=== PATIENT | male | born 1985 | race African-American/Black ===

== ENCOUNTER 2022-12-27 02:43 | Emergency (ER) | payer OTHER, MEDICAID, SELFPAY ==
[2022-12-27] VITALS (18 sets, daily range): BP systolic 133–170; BP diastolic 90–115; PULSE 94–125; RESP 17–44; TEMP 36.6; O2SAT 93–100; BMI 50.2
--- NOTE | 2022-12-27 03:30 | DI.RAD.S_ITS ---
PROCEDURE: XR CHEST 1V INDICATIONS: chest pain TECHNIQUE: One view of the chest was acquired. COMPARISON: None. FINDINGS: Surgical changes and devices: None. Lungs and pleura: Right upper lobe pulmonary infiltrate. Heart size is enlarged, there is underlying moderate vascular congestion. No pleural effusions. Mediastinum: Mediastinal contours appear normal. Heart size is normal. Bones and chest wall: No suspicious bony lesions. Overlying soft tissues appear unremarkable. IMPRESSION: Cardiomegaly, moderate vascular congestion and right upper lobe pulmonary infiltrate consistent with pulmonary edema and/or infection Note: Final report is concordant with preliminary interpretation by [facility] Approved by: Maco Evans M.D. on 12/27/2022 at 8:16
[2022-12-27 03:38] LABS: INR 1.4 (0.9-1.3); Prothrombin Time 15.6 SECONDS (10.1-12.7)
[2022-12-27 03:40] LABS: Add Manual Diff / Slide Review NO; Basophils Absolute Auto 100 /uL (0-100); Basophils Percent Auto 0.9 % (0-2); Eosinophils Absolute Auto 0 /uL (0-450); Eosinophils Percent Auto 0.7 % (2-4); Hematocrit 40.4 % (41-53); Hemoglobin 12.6 g/dL (13.5-17.5); Lymphocytes Absolute Auto 2200 /uL (1100-4500); Lymphocytes Percent Auto 33.8 % (25-40); Mean Corpuscular HGB Conc 31.1 % (30-36); Mean Corpuscular Hemoglobin 20.7 PG (26-34); Mean Corpuscular Volume 66.6 fL (80-100); Monocytes Absolute Auto 700 /uL (0-900); Neutrophils Absolute Auto 3500 /uL (1500-7000); Neutrophils Percent Auto 53.6 % (50-75); PTT Partial Thromboplastin Tim 26 SECONDS (26-36); Platelet Count 240 X10^3/uL (150-400); Red Blood Cell Count 6.07 X10^6/uL (4.5-5.9); Red Cell Distribution Width 20.8 % (11.6-14.8); White Blood Cell Count 6.5 X10^3/uL (4.5-11.0)
[2022-12-27 03:41] LABS: Alanine Aminotransferase 53 IU/L (<50); Albumin 3.2 g/dL (3.5-5.0); Albumin Globulin Ratio 1.1 (1.0-2.8); Alkaline Phosphatase 62 U/L (38-126); Aspartate Aminotransferase 34 IU/L (17-59); BUN Creatinine Ratio 14.1 (6-22); Bilirubin Total 0.6 mg/dL (0.2-1.3); Blood Urea Nitrogen 18 mg/dL (9-20); Calcium 8.5 mg/dL (8.4-10.2); Carbon Dioxide 27 mmol/L (22-32); Chloride 103 mmol/L (98-107); Creatine Kinase 138 U/L (55-170); Estimated Glomerular Filt Rate > 60 mL/min (>60); Globulin 2.9 g/dL (1.7-4.1); Glucose 102 mg/dL (70-100); HEMOLYSIS < 15 (0-50); Lipase 274 U/L (23-300); Magnesium 1.8 mg/dL (1.6-2.3); Potassium 4.2 mmol/L (3.4-5.1); Sodium 138 mmol/L (137-145); Total Protein 6.1 g/dL (6.3-8.2)
[2022-12-27 03:54] LABS: COVID19 -Nasal RAPID Negative (Negative)
[2022-12-27 03:56] LABS: CKMB % Relative Index 0.8 % (1.5-5.0); Creatine Kinase MB 1.06 ng/mL (<2.37)
[2022-12-27 04:01] LABS: Hypochromasia 1+
[2022-12-27 04:02] LABS: Anisocytosis 2+; Microcytosis 2+; Target Cells 2+
--- NOTE | 2022-12-27 04:09 | ED.CHESTPAIN ---
HPI - Chest Pain <Bisi Shine MD - Last Filed: 12/28/22 00:27> General Chief Complaint: Chest Pain Stated Complaint: chest pain, sob, coughing up blood Time Seen by Provider: 12/27/22 03:30 Source: patient Mode of arrival: Ambulatory Limitations: no limitations History of Present Illness HPI narrative: 37-year-old gentleman with a history of hypertension, seizure disorder, hypertension who has not taking any medications or had any interactions with the healthcare system for at least 2 years. States that he stopped smoking marijuana about 3 months ago because it was making him cough too much. He stops smoking tobacco about 3 weeks ago states that he is smoked the majority of his life. He denies any fevers but notes that he has had some chronic constipation despite having a bowel movement every day. He feels that he has fullness in his upper abdomen that he attributes to constipation. He is noted significant increased lower extremity edema over the last 3-4 weeks and today 6:00 a.m. began coughing up bright red blood. He has enough that there is at least 10 cc of blood in a can that he has been spitting into. Continues to cough during our discussion however he is able to speak in full sentences is cooperative and making good eye contact. He denies any chest pain beyond that related to cough, he is does not complain of orthopnea or dyspnea. He has not had any recent fevers or dysuria. Related Data Allergies Allergy/AdvReac Type Severity Reaction Status Date / Time No Known Drug Allergies Allergy Verified 12/27/22 05:22 Review of Systems <Bisi Shine MD - Last Filed: 12/28/22 00:27> Review of Systems Narrative: Remainder of complete review of systems is otherwise unremarkable except for that included in the HPI. Patient History <Bisi Shine MD - Last Filed: 12/28/22 00:27> Medical History (Updated 12/27/22 @ 06:03 by Bisi Shine MD) Hypertension Seizure disorder Social History Smoking Status: Former smoker Smoking Status: Former smoker alcohol intake frequency: 0-2 drinks per day Substance Use Type: does not use Exam <Bisi Shine MD - Last Filed: 12/28/22 00:27> Initial Vital Signs Initial Vital Signs: Vital Signs Temperature 98 F 12/27/22 03:06 Pulse Rate 106 H 12/27/22 03:06 Respiratory Rate 20 12/27/22 03:06 Blood Pressure 147/107 H 12/27/22 03:06 Pulse Oximetry 98 12/27/22 03:06 Oxygen Delivery Method 12/27/22 03:06 General: Obese but essentially Healthy appearing, in no acute distress. But actively producing bright red blood with each cough. Able to give a complete and coherent history. HEENT: Moist mucous membranes, normal sclera with reactive pupils, Neck: No JVD, supple Respiratory: Lungs with scattered wheeze in all lung [place] Cardiac: Tachycardic without murmurs Abdomen: Soft, nontender, good bowel tones, no flank pain Skin: Warm and dry, no rashes Neurologic: Grossly neurologically intact with no obvious asymmetries or abnormalities Extremities: No trauma, 2+ nonpitting edema bilaterally Psych: Cooperative, appropriate affect <Claus Hoff DO - Last Filed: 12/27/22 12:00> Initial Vital Signs Initial Vital Signs: Vital Signs Temperature 98 F 12/27/22 03:06 Pulse Rate 106 H 12/27/22 03:06 Respiratory Rate 20 12/27/22 03:06 Blood Pressure 147/107 H 12/27/22 03:06 Pulse Oximetry 98 12/27/22 03:06 Oxygen Delivery Method 12/27/22 03:06 Course <Bisi Shine MD - Last Filed: 12/28/22 00:27> Orders Ordered: Discontinued Medications Aspirin (Aspirin 81 Mg Chew Tab) 324 mg PO NOW ONE Stop: 12/27/22 03:30 Last Admin: 12/27/22 04:23 Dose: 324 mg Documented By: GC Aspirin (Aspirin 81 Mg Chew Tab) 324 mg PO NOW ONE Stop: 12/27/22 04:25 Last Admin: 12/27/22 05:22 Dose: Not Given Documented By: GC Furosemide (Furosemide 40 Mg/4 Ml Vial) 40 mg IV NOW ONE Stop: 12/27/22 04:25 Last Admin: 12/27/22 04:36 Dose: 40 mg Documented By: LITZY Piperacillin Sod/Tazobactam (Sod 4.5 gm/ Sodium Chloride) 100 mls @ 200 mls/hr IV NOW ONE Stop: 12/27/22 04:34 Last Infusion: 12/27/22 06:24 Dose: 0 mls/hr Documented By: Admin: 12/27/22 05:10 Dose: 200 mls/hr Documented By: GC Vital Signs Vital signs: Vital Signs - 8 hr 12/27/22 04:53 12/27/22 04:59 12/27/22 04:59 Pulse Rate 114 H Respiratory Rate 23 Blood Pressure 170/115 H Pulse Oximetry 93 99 12/27/22 05:00 12/27/22 05:30 12/27/22 05:30 Pulse Rate 125 H 100 H Respiratory Rate 44 H 18 Blood Pressure 152/98 H Pulse Oximetry 99 98 12/27/22 06:00 12/27/22 06:00 12/27/22 06:30 Pulse Rate 105 H Respiratory Rate 32 H Blood Pressure 162/112 H 141/90 H Pulse Oximetry 99 12/27/22 06:30 12/27/22 07:00 12/27/22 07:00 Pulse Rate 94 H 102 H Respiratory Rate 21 37 H Blood Pressure 156/105 H Pulse Oximetry 99 98 12/27/22 07:30 12/27/22 07:30 12/27/22 08:00 Pulse Rate 95 H Respiratory Rate 17 Blood Pressure 144/91 H 147/93 H Pulse Oximetry 98 12/27/22 08:00 12/27/22 08:30 12/27/22 08:30 Pulse Rate 95 H 96 H Respiratory Rate 24 24 Blood Pressure 150/98 H Pulse Oximetry 98 100 12/27/22 09:00 12/27/22 09:00 12/27/22 09:30 Pulse Rate 98 H Respiratory Rate 24 Blood Pressure 156/101 H 148/97 H Pulse Oximetry 99 12/27/22 09:30 12/27/22 10:00 12/27/22 10:00 Pulse Rate 94 H 99 H Respiratory Rate 24 22 Blood Pressure 133/91 H Pulse Oximetry 98 94 12/27/22 10:30 12/27/22 10:30 12/27/22 11:00 Pulse Rate 99 H Respiratory Rate 19 Blood Pressure 150/98 H 148/101 H Pulse Oximetry 96 12/27/22 11:00 Pulse Rate 96 H Respiratory Rate 19 Blood Pressure Pulse Oximetry 100 <Claus Hoff DO - Last Filed: 12/27/22 12:00> Orders Ordered: Discontinued Medications Aspirin (Aspirin 81 Mg Chew Tab) 324 mg PO NOW ONE Stop: 12/27/22 03:30 Last Admin: 12/27/22 04:23 Dose: 324 mg Documented By: NADINE Aspirin (Aspirin 81 Mg Chew Tab) 324 mg PO NOW ONE Stop: 12/27/22 04:25 Last Admin: 12/27/22 05:22 Dose: Not Given Documented By: NADINE Furosemide (Furosemide 40 Mg/4 Ml Vial) 40 mg IV NOW ONE Stop: 12/27/22 04:25 Last Admin: 12/27/22 04:36 Dose: 40 mg Documented By: LITZY Piperacillin Sod/Tazobactam (Sod 4.5 gm/ Sodium Chloride) 100 mls @ 200 mls/hr IV NOW ONE Stop: 12/27/22 04:34 Last Infusion: 12/27/22 06:24 Dose: 0 mls/hr Documented By: Admin: 12/27/22 05:10 Dose: 200 mls/hr Documented By: NADINE Vital Signs Vital signs: Vital Signs - 8 hr 12/27/22 04:53 12/27/22 04:59 12/27/22 04:59 Pulse Rate 114 H Respiratory Rate 23 Blood Pressure 170/115 H Pulse Oximetry 93 99 12/27/22 05:00 12/27/22 05:30 12/27/22 05:30 Pulse Rate 125 H 100 H Respiratory Rate 44 H 18 Blood Pressure 152/98 H Pulse Oximetry 99 98 12/27/22 06:00 12/27/22 06:00 12/27/22 06:30 Pulse Rate 105 H Respiratory Rate 32 H Blood Pressure 162/112 H 141/90 H Pulse Oximetry 99 12/27/22 06:30 12/27/22 07:00 12/27/22 07:00 Pulse Rate 94 H 102 H Respiratory Rate 21 37 H Blood Pressure 156/105 H Pulse Oximetry 99 98 12/27/22 07:30 12/27/22 07:30 12/27/22 08:00 Pulse Rate 95 H Respiratory Rate 17 Blood Pressure 144/91 H 147/93 H Pulse Oximetry 98 12/27/22 08:00 12/27/22 08:30 12/27/22 08:30 Pulse Rate 95 H 96 H Respiratory Rate 24 24 Blood Pressure 150/98 H Pulse Oximetry 98 100 12/27/22 09:00 12/27/22 09:00 12/27/22 09:30 Pulse Rate 98 H Respiratory Rate 24 Blood Pressure 156/101 H 148/97 H Pulse Oximetry 99 12/27/22 09:30 12/27/22 10:00 12/27/22 10:00 Pulse Rate 94 H 99 H Respiratory Rate 24 22 Blood Pressure 133/91 H Pulse Oximetry 98 94 12/27/22 10:30 12/27/22 10:30 12/27/22 11:00 Pulse Rate 99 H Respiratory Rate 19 Blood Pressure 150/98 H 148/101 H Pulse Oximetry 96 12/27/22 11:00 Pulse Rate 96 H Respiratory Rate 19 Blood Pressure Pulse Oximetry 100 MDM - Chest Pain <Bisi Shine MD - Last Filed: 12/28/22 00:27> Lab Data 12/27/22 03:15 12/27/22 03:15 Labs: Lab Results 12/27/22 12/27/22 12/27/22 Range/Units 03:15 03:15 03:15 WBC 6.5 (4.5-11.0) X10^3/uL RBC 6.07 H (4.5-5.9) X10^6/uL Hgb 12.6 L (13.5-17.5) g/dL Hct 40.4 L (41-53) % MCV 66.6 L (80-100) fL MCH 20.7 L (26-34) PG MCHC 31.1 (30-36) % RDW 20.8 H (11.6-14.8) % Plt Count 240 (150-400) X10^3/uL Neut % (Auto) 53.6 (50-75) % Lymph % (Auto) 33.8 (25-40) % [place] % (Auto) 11.0 (3-14) % Eos % (Auto) 0.7 L (2-4) % Baso % (Auto) 0.9 (0-2) % Neut # (Auto) 3500 (8528-5341) /uL Lymph # (Auto) 2200 (8966-1818) /uL [place] # (Auto) 700 (0-900) /uL Eos # (Auto) 0 (0-450) /uL Baso # (Auto) 100 (0-100) /uL RBC Morphology See below Hypochromasia 1+ H Anisocytosis 2+ H Microcytosis 2+ H Target Cells 2+ H PT 15.6 H (10.1-12.7) SECONDS INR 1.4 H (0.9-1.3) APTT 26 (26-36) SECONDS Sodium 138 (137-145) mmol/L Potassium 4.2 (3.4-5.1) mmol/L Chloride 103 (98-107) mmol/L Carbon Dioxide 27 (22-32) mmol/L BUN 18 (9-20) mg/dL Creatinine 1.28 H (0.66-1.25) mg/dL Estimated GFR > 60 (>60) mL/min BUN/Creatinine Ratio 14.1 (6-22) Glucose 102 H (70-100) mg/dL Lactate (0.7-2.1) mmol/L Calcium 8.5 (8.4-10.2) mg/dL Magnesium 1.8 (1.6-2.3) mg/dL Total Bilirubin 0.6 (0.2-1.3) mg/dL AST 34 (17-59) IU/L ALT 53 H (<50) IU/L Alkaline Phosphatase 62 (38-126) U/L Total Creatine Kinase 138 (55-170) U/L CK-MB (CK-2) 1.06 (<2.37) ng/mL CK-MB (CK-2) Rel Index 0.8 L (1.5-5.0) % Troponin I 0.169 H* (0.01-0.034) ng/mL NT-Pro-B Natriuret Pep (<125) pg/mL Total Protein 6.1 L (6.3-8.2) g/dL Albumin 3.2 L (3.5-5.0) g/dL Globulin 2.9 (1.7-4.1) g/dL Albumin/Globulin Ratio 1.1 (1.0-2.8) Lipase 274 (23-300) U/L Chlamy pneumoniae PCR (Not Detect) Adenovirus (PCR) (Not Detect) B. pertussis DNA (PCR) (Not Detecte) B.parapertussis DNA PCR (Not Detecte) Coronavirus OC43 (PCR) (Not Detect) Coronavirus HKU1 (PCR) (Not Detect) Coronavirus 229E (PCR) (Not Detect) SARS-CoV-2 (PCR) (Negative) Coronavirus NL63 (PCR) (Not Detect) Human Metapneumovir PCR (Not Detect) Influenza Type A (PCR) (Not Detect) Influenza Type B (PCR) (Not Detect) M. pneumoniae (PCR) (Not Detect) Parainfluenza 1 (PCR) (Not Detect) Parainfluenza 2 (PCR) (Not Detect) Parainfluenza 3 (PCR) (Not Detect) Parainfluenza 4 (PCR) (Not Detect) RSV (PCR) (Not Detect) Entero/Rhino (PCR) (Not Detect) 12/27/22 12/27/22 12/27/22 Range/Units 03:15 03:15 03:25 WBC (4.5-11.0) X10^3/uL RBC (4.5-5.9) X10^6/uL Hgb (13.5-17.5) g/dL Hct (41-53) % MCV (80-100) fL MCH (26-34) PG MCHC (30-36) % RDW (11.6-14.8) % Plt Count (150-400) X10^3/uL Neut % (Auto) (50-75) % Lymph % (Auto) (25-40) % [place] % (Auto) (3-14) % Eos % (Auto) (2-4) % Baso % (Auto) (0-2) % Neut # (Auto) (9253-4543) /uL Lymph # (Auto) (2161-5269) /uL [place] # (Auto) (0-900) /uL Eos # (Auto) (0-450) /uL Baso # (Auto) (0-100) /uL RBC Morphology Hypochromasia Anisocytosis Microcytosis Target Cells PT (10.1-12.7) SECONDS INR (0.9-1.3) APTT (26-36) SECONDS Sodium (137-145) mmol/L Potassium (3.4-5.1) mmol/L Chloride (98-107) mmol/L Carbon Dioxide (22-32) mmol/L BUN (9-20) mg/dL Creatinine (0.66-1.25) mg/dL Estimated GFR (>60) mL/min BUN/Creatinine Ratio (6-22) Glucose (70-100) mg/dL Lactate 1.8 (0.7-2.1) mmol/L Calcium (8.4-10.2) mg/dL Magnesium (1.6-2.3) mg/dL Total Bilirubin (0.2-1.3) mg/dL AST (17-59) IU/L ALT (<50) IU/L Alkaline Phosphatase (38-126) U/L Total Creatine Kinase (55-170) U/L CK-MB (CK-2) (<2.37) ng/mL CK-MB (CK-2) Rel Index (1.5-5.0) % Troponin I (0.01-0.034) ng/mL NT-Pro-B Natriuret Pep 6600 H (<125) pg/mL Total Protein (6.3-8.2) g/dL Albumin (3.5-5.0) g/dL Globulin (1.7-4.1) g/dL Albumin/Globulin Ratio (1.0-2.8) Lipase (23-300) U/L Chlamy pneumoniae PCR (Not Detect) Adenovirus (PCR) (Not Detect) B. pertussis DNA (PCR) (Not Detecte) B.parapertussis DNA PCR (Not Detecte) Coronavirus OC43 (PCR) (Not Detect) Coronavirus HKU1 (PCR) (Not Detect) Coronavirus 229E (PCR) (Not Detect) SARS-CoV-2 (PCR) Negative (Negative) Coronavirus NL63 (PCR) (Not Detect) Human Metapneumovir PCR (Not Detect) Influenza Type A (PCR) (Not Detect) Influenza Type B (PCR) (Not Detect) M. pneumoniae (PCR) (Not Detect) Parainfluenza 1 (PCR) (Not Detect) Parainfluenza 2 (PCR) (Not Detect) Parainfluenza 3 (PCR) (Not Detect) Parainfluenza 4 (PCR) (Not Detect) RSV (PCR) (Not Detect) Entero/Rhino (PCR) (Not Detect) 12/27/22 12/27/22 Range/Units 04:35 05:53 WBC (4.5-11.0) X10^3/uL RBC (4.5-5.9) X10^6/uL Hgb (13.5-17.5) g/dL Hct (41-53) % MCV (80-100) fL MCH (26-34) PG MCHC (30-36) % RDW (11.6-14.8) % Plt Count (150-400) X10^3/uL Neut % (Auto) (50-75) % Lymph % (Auto) (25-40) % [place] % (Auto) (3-14) % Eos % (Auto) (2-4) % Baso % (Auto) (0-2) % Neut # (Auto) (0069-0104) /uL Lymph # (Auto) (4811-3569) /uL [place] # (Auto) (0-900) /uL Eos # (Auto) (0-450) /uL Baso # (Auto) (0-100) /uL RBC Morphology Hypochromasia Anisocytosis Microcytosis Target Cells PT (10.1-12.7) SECONDS INR (0.9-1.3) APTT (26-36) SECONDS Sodium (137-145) mmol/L Potassium (3.4-5.1) mmol/L Chloride (98-107) mmol/L Carbon Dioxide (22-32) mmol/L BUN (9-20) mg/dL Creatinine (0.66-1.25) mg/dL Estimated GFR (>60) mL/min BUN/Creatinine Ratio (6-22) Glucose (70-100) mg/dL Lactate (0.7-2.1) mmol/L Calcium (8.4-10.2) mg/dL Magnesium (1.6-2.3) mg/dL Total Bilirubin (0.2-1.3) mg/dL AST (17-59) IU/L ALT (<50) IU/L Alkaline Phosphatase (38-126) U/L Total Creatine Kinase (55-170) U/L CK-MB (CK-2) (<2.37) ng/mL CK-MB (CK-2) Rel Index (1.5-5.0) % Troponin I 0.127 H* (0.01-0.034) ng/mL NT-Pro-B Natriuret Pep (<125) pg/mL Total Protein (6.3-8.2) g/dL Albumin (3.5-5.0) g/dL Globulin (1.7-4.1) g/dL Albumin/Globulin Ratio (1.0-2.8) Lipase (23-300) U/L Chlamy pneumoniae PCR Not detected (Not Detect) Adenovirus (PCR) Not detected (Not Detect) B. pertussis DNA (PCR) Not detected (Not Detecte) B.parapertussis DNA PCR Not detected (Not Detecte) Coronavirus OC43 (PCR) Not detected (Not Detect) Coronavirus HKU1 (PCR) Not detected (Not Detect) Coronavirus 229E (PCR) Not detected (Not Detect) SARS-CoV-2 (PCR) Not detected (Negative) Coronavirus NL63 (PCR) Not detected (Not Detect) Human Metapneumovir PCR Not detected (Not Detect) Influenza Type A (PCR) Not detected (Not Detect) Influenza Type B (PCR) Not detected (Not Detect) M. pneumoniae (PCR) Not detected (Not Detect) Parainfluenza 1 (PCR) Not detected (Not Detect) Parainfluenza 2 (PCR) Not detected (Not Detect) Parainfluenza 3 (PCR) Not detected (Not Detect) Parainfluenza 4 (PCR) Not detected (Not Detect) RSV (PCR) Not detected (Not Detect) Entero/Rhino (PCR) Not detected (Not Detect) ECG Data Interpretation: Sinus tach at 1:06 a.m. Shortened [place] interval Nonspecific ST T wave abnormalities No acute ischemic changes MDM Narrative Medical decision making narrative: CC: Hemoptysis since 6:00 p.m. tonight with significant lower extremity edema increasing over the last 3 weeks. these are new an undiagnosed problems with uncertain prognosis, significant potential for morbidity and mortality Complicating co-morbidities: Lack of access to medical care, morbid obesity Corroborating data: Data collected from: patient, Social determinants of health that may influence the patients condition: Access to care Medical records reviewed: Prior neurology notes from [facility] last visit was well over 5 years ago Differential considered: Infectious etiology, neoplasm, pulmonary embolism, congestive heart failure, cardiomyopathy, acute coronary syndrome Exam documented above, pertinent findings include: Fairly significant hemoptysis but no overt respiratory distress, wheezing in all lung [place] Lab Test results independently reviewed as above. Pertinent findings: CBC shows minor anemia that significant MCV at 66.6 and significant morphology abnormalities with hypochromasia, anisocytosis, microcytosis and target cells Chemistries with mildly elevated creatinine at 1.28 normal BUN mildly elevated AST at 53 Troponin is elevated at 0.169 with CK-MB index low. Low total protein COVID negative Full respiratory panel BNP Independently reviewed EKG as above Imaging studies independently reviewed: Chest x-ray with cardiomegaly, bilateral perihilar opacification, slight peribronchial cuffing and thickened minor fissure may represent CHF with pulmonary edema but can not exclude mild atypical pneumonia or other underlying pathologic process. Lisseth aCrdenas MD CT chest: Small PE in anterior segmental artery of the right upper lobe. Large pleural-based wedge-shaped ground-glass attenuation likely pneumonia however infarct can not be excluded PE is not visualized in this area. Cardiomegaly with right greater than left pleural effusion and pulmonary edema Consultations: 547am Phone call to [facility] see if beds are available. They are full [address] [facility] will return call with bed availablity Treatments: Sputum sample is collected, he is given aspirin. Because of the rather impressive hemoptysis he is not started on heparin for the elevated troponin. He is given IV Lasix with concerns for acute congestive heart failure/cardiomyopathy. CT scan of the chest is currently pending. We will begin antibiotics after blood cultures are obtained. Full respiratory panel has been ordered. Re-evaluations: 5:50 findings reviewed with patient. He is finished his Zosyn. Updated him on CT scan findings and why we will not be starting heparin in light of his acute and persistent hemoptysis. Already voided almost 2800 cc after the initial Lasix. His breathing and work of breathing is reassuring. His respiratory rate remains in the 20s oxygen saturations are in the upper 90s on room air he is able to speak in full sentences. He remains tachycardic in the 100 range. Normal lactic level. blood cx have been drawn. No meeting criteria for severe sepsis. 7am Care turned to Dr Hoff Discussion: 1. actue hemoptysis - due to pneumonia, possible pulmonary infarct. Sputum cx is pending 2. small PE in anterior segamaental artery - can't start heparin due to acute and ongoing hemoptosis 3. New dx CHF with pulmonary edema and LE edema. responding to lasix 4. Elevated trop with non-specific ST changes. 2nd trop is trending down. He did get aspirin. No ongoing chest pain. No heparin as no pain and hemoptysis. 5. RULobe pneumonia, has recieved zosyn, no evidence of severe sepsis Disposition: see below, along with detailed discharge instructions that have been reviewed with patient as well as indications for ED re-evaluation and additional outpatient follow up <Claus Hoff DO - Last Filed: 12/27/22 12:00> Lab Data Labs: Lab Results 12/27/22 12/27/22 12/27/22 Range/Units 03:15 03:15 03:15 WBC 6.5 (4.5-11.0) X10^3/uL RBC 6.07 H (4.5-5.9) X10^6/uL Hgb 12.6 L (13.5-17.5) g/dL Hct 40.4 L (41-53) % MCV 66.6 L (80-100) fL MCH 20.7 L (26-34) PG MCHC 31.1 (30-36) % RDW 20.8 H (11.6-14.8) % Plt Count 240 (150-400) X10^3/uL Neut % (Auto) 53.6 (50-75) % Lymph % (Auto) 33.8 (25-40) % [place] % (Auto) 11.0 (3-14) % Eos % (Auto) 0.7 L (2-4) % Baso % (Auto) 0.9 (0-2) % Neut # (Auto) 3500 (0692-1628) /uL Lymph # (Auto) 2200 (2605-3142) /uL [place] # (Auto) 700 (0-900) /uL Eos # (Auto) 0 (0-450) /uL Baso # (Auto) 100 (0-100) /uL RBC Morphology See below Hypochromasia 1+ H Anisocytosis 2+ H Microcytosis 2+ H Target Cells 2+ H PT 15.6 H (10.1-12.7) SECONDS INR 1.4 H (0.9-1.3) APTT 26 (26-36) SECONDS Sodium 138 (137-145) mmol/L Potassium 4.2 (3.4-5.1) mmol/L Chloride 103 (98-107) mmol/L Carbon Dioxide 27 (22-32) mmol/L BUN 18 (9-20) mg/dL Creatinine 1.28 H (0.66-1.25) mg/dL Estimated GFR > 60 (>60) mL/min BUN/Creatinine Ratio 14.1 (6-22) Glucose 102 H (70-100) mg/dL Lactate (0.7-2.1) mmol/L Calcium 8.5 (8.4-10.2) mg/dL Magnesium 1.8 (1.6-2.3) mg/dL Total Bilirubin 0.6 (0.2-1.3) mg/dL AST 34 (17-59) IU/L ALT 53 H (<50) IU/L Alkaline Phosphatase 62 (38-126) U/L Total Creatine Kinase 138 (55-170) U/L CK-MB (CK-2) 1.06 (<2.37) ng/mL CK-MB (CK-2) Rel Index 0.8 L (1.5-5.0) % Troponin I 0.169 H* (0.01-0.034) ng/mL NT-Pro-B Natriuret Pep (<125) pg/mL Total Protein 6.1 L (6.3-8.2) g/dL Albumin 3.2 L (3.5-5.0) g/dL Globulin 2.9 (1.7-4.1) g/dL Albumin/Globulin Ratio 1.1 (1.0-2.8) Lipase 274 (23-300) U/L Chlamy pneumoniae PCR (Not Detect) Adenovirus (PCR) (Not Detect) B. pertussis DNA (PCR) (Not Detecte) B.parapertussis DNA PCR (Not Detecte) Coronavirus OC43 (PCR) (Not Detect) Coronavirus HKU1 (PCR) (Not Detect) Coronavirus 229E (PCR) (Not Detect) SARS-CoV-2 (PCR) (Negative) Coronavirus NL63 (PCR) (Not Detect) Human Metapneumovir PCR (Not Detect) Influenza Type A (PCR) (Not Detect) Influenza Type B (PCR) (Not Detect) M. pneumoniae (PCR) (Not Detect) Parainfluenza 1 (PCR) (Not Detect) Parainfluenza 2 (PCR) (Not Detect) Parainfluenza 3 (PCR) (Not Detect) Parainfluenza 4 (PCR) (Not Detect) RSV (PCR) (Not Detect) Entero/Rhino (PCR) (Not Detect) 12/27/22 12/27/22 12/27/22 Range/Units 03:15 03:15 03:25 WBC (4.5-11.0) X10^3/uL RBC (4.5-5.9) X10^6/uL Hgb (13.5-17.5) g/dL Hct (41-53) % MCV (80-100) fL MCH (26-34) PG MCHC (30-36) % RDW (11.6-14.8) % Plt Count (150-400) X10^3/uL Neut % (Auto) (50-75) % Lymph % (Auto) (25-40) % [place] % (Auto) (3-14) % Eos % (Auto) (2-4) % Baso % (Auto) (0-2) % Neut # (Auto) (2932-4712) /uL Lymph # (Auto) (8440-2836) /uL [place] # (Auto) (0-900) /uL Eos # (Auto) (0-450) /uL Baso # (Auto) (0-100) /uL RBC Morphology Hypochromasia Anisocytosis Microcytosis Target Cells PT (10.1-12.7) SECONDS INR (0.9-1.3) APTT (26-36) SECONDS Sodium (137-145) mmol/L Potassium (3.4-5.1) mmol/L Chloride (98-107) mmol/L Carbon Dioxide (22-32) mmol/L BUN (9-20) mg/dL Creatinine (0.66-1.25) mg/dL Estimated GFR (>60) mL/min BUN/Creatinine Ratio (6-22) Glucose (70-100) mg/dL Lactate 1.8 (0.7-2.1) mmol/L Calcium (8.4-10.2) mg/dL Magnesium (1.6-2.3) mg/dL Total Bilirubin (0.2-1.3) mg/dL AST (17-59) IU/L ALT (<50) IU/L Alkaline Phosphatase (38-126) U/L Total Creatine Kinase (55-170) U/L CK-MB (CK-2) (<2.37) ng/mL CK-MB (CK-2) Rel Index (1.5-5.0) % Troponin I (0.01-0.034) ng/mL NT-Pro-B Natriuret Pep 6600 H (<125) pg/mL Total Protein (6.3-8.2) g/dL Albumin (3.5-5.0) g/dL Globulin (1.7-4.1) g/dL Albumin/Globulin Ratio (1.0-2.8) Lipase (23-300) U/L Chlamy pneumoniae PCR (Not Detect) Adenovirus (PCR) (Not Detect) B. pertussis DNA (PCR) (Not Detecte) B.parapertussis DNA PCR (Not Detecte) Coronavirus OC43 (PCR) (Not Detect) Coronavirus HKU1 (PCR) (Not Detect) Coronavirus 229E (PCR) (Not Detect) SARS-CoV-2 (PCR) Negative (Negative) Coronavirus NL63 (PCR) (Not Detect) Human Metapneumovir PCR (Not Detect) Influenza Type A (PCR) (Not Detect) Influenza Type B (PCR) (Not Detect) M. pneumoniae (PCR) (Not Detect) Parainfluenza 1 (PCR) (Not Detect) Parainfluenza 2 (PCR) (Not Detect) Parainfluenza 3 (PCR) (Not Detect) Parainfluenza 4 (PCR) (Not Detect) RSV (PCR) (Not Detect) Entero/Rhino (PCR) (Not Detect) 12/27/22 12/27/22 Range/Units 04:35 05:53 WBC (4.5-11.0) X10^3/uL RBC (4.5-5.9) X10^6/uL Hgb (13.5-17.5) g/dL Hct (41-53) % MCV (80-100) fL MCH (26-34) PG MCHC (30-36) % RDW (11.6-14.8) % Plt Count (150-400) X10^3/uL Neut % (Auto) (50-75) % Lymph % (Auto) (25-40) % [place] % (Auto) (3-14) % Eos % (Auto) (2-4) % Baso % (Auto) (0-2) % Neut # (Auto) (8389-8287) /uL Lymph # (Auto) (8211-0121) /uL [place] # (Auto) (0-900) /uL Eos # (Auto) (0-450) /uL Baso # (Auto) (0-100) /uL RBC Morphology Hypochromasia Anisocytosis Microcytosis Target Cells PT (10.1-12.7) SECONDS INR (0.9-1.3) APTT (26-36) SECONDS Sodium (137-145) mmol/L Potassium (3.4-5.1) mmol/L Chloride (98-107) mmol/L Carbon Dioxide (22-32) mmol/L BUN (9-20) mg/dL Creatinine (0.66-1.25) mg/dL Estimated GFR (>60) mL/min BUN/Creatinine Ratio (6-22) Glucose (70-100) mg/dL Lactate (0.7-2.1) mmol/L Calcium (8.4-10.2) mg/dL Magnesium (1.6-2.3) mg/dL Total Bilirubin (0.2-1.3) mg/dL AST (17-59) IU/L ALT (<50) IU/L Alkaline Phosphatase (38-126) U/L Total Creatine Kinase (55-170) U/L CK-MB (CK-2) (<2.37) ng/mL CK-MB (CK-2) Rel Index (1.5-5.0) % Troponin I 0.127 H* (0.01-0.034) ng/mL NT-Pro-B Natriuret Pep (<125) pg/mL Total Protein (6.3-8.2) g/dL Albumin (3.5-5.0) g/dL Globulin (1.7-4.1) g/dL Albumin/Globulin Ratio (1.0-2.8) Lipase (23-300) U/L Chlamy pneumoniae PCR Not detected (Not Detect) Adenovirus (PCR) Not detected (Not Detect) B. pertussis DNA (PCR) Not detected (Not Detecte) B.parapertussis DNA PCR Not detected (Not Detecte) Coronavirus OC43 (PCR) Not detected (Not Detect) Coronavirus HKU1 (PCR) Not detected (Not Detect) Coronavirus 229E (PCR) Not detected (Not Detect) SARS-CoV-2 (PCR) Not detected (Negative) Coronavirus NL63 (PCR) Not detected (Not Detect) Human Metapneumovir PCR Not detected (Not Detect) Influenza Type A (PCR) Not detected (Not Detect) Influenza Type B (PCR) Not detected (Not Detect) M. pneumoniae (PCR) Not detected (Not Detect) Parainfluenza 1 (PCR) Not detected (Not Detect) Parainfluenza 2 (PCR) Not detected (Not Detect) Parainfluenza 3 (PCR) Not detected (Not Detect) Parainfluenza 4 (PCR) Not detected (Not Detect) RSV (PCR) Not detected (Not Detect) Entero/Rhino (PCR) Not detected (Not Detect) MDM Narrative Medical decision making narrative: CC: Hemoptysis since 6:00 p.m. tonight with significant lower extremity edema increasing over the last 3 weeks. these are new an undiagnosed problems with uncertain prognosis, significant potential for morbidity and mortality Complicating co-morbidities: Lack of access to medical care, morbid obesity Corroborating data: Data collected from: patient, Social determinants of health that may influence the patients condition: Access to care Medical records reviewed: Prior neurology notes from [facility] last visit was well over 5 years ago Differential considered: Infectious etiology, neoplasm, pulmonary embolism, congestive heart failure, cardiomyopathy, acute coronary syndrome Exam documented above, pertinent findings include: Fairly significant hemoptysis but no overt respiratory distress, wheezing in all lung [place] Lab Test results independently reviewed as above. Pertinent findings: CBC shows minor anemia that significant MCV at 66.6 and significant morphology abnormalities with hypochromasia, anisocytosis, microcytosis and target cells Chemistries with mildly elevated creatinine at 1.28 normal BUN mildly elevated AST at 53 Troponin is elevated at 0.169 with CK-MB index low. Low total protein COVID negative Full respiratory panel BNP Independently reviewed EKG as above Imaging studies independently reviewed: Chest x-ray with cardiomegaly, bilateral perihilar opacification, slight peribronchial cuffing and thickened minor fissure may represent CHF with pulmonary edema but can not exclude mild atypical pneumonia or other underlying pathologic process. Lisseth Cardenas MD CT chest: Small PE in anterior segmental artery of the right upper lobe. Large pleural-based wedge-shaped ground-glass attenuation likely pneumonia however infarct can not be excluded PE is not visualized in this area. Cardiomegaly with right greater than left pleural effusion and pulmonary edema Consultations: 547am Phone call to [facility] see if beds are available. They are full [address] [facility] will return call with bed availablity Treatments: Sputum sample is collected, he is given aspirin. Because of the rather impressive hemoptysis he is not started on heparin for the elevated troponin. He is given IV Lasix with concerns for acute congestive heart failure/cardiomyopathy. CT scan of the chest is currently pending. We will begin antibiotics after blood cultures are obtained. Full respiratory panel has been ordered. Re-evaluations: 5:50 findings reviewed with patient. He is finished his Zosyn. Updated him on CT scan findings and why we will not be starting heparin in light of his acute and persistent hemoptysis. Already voided almost 2800 cc after the initial Lasix. His breathing and work of breathing is reassuring. His respiratory rate remains in the 20s oxygen saturations are in the upper 90s on room air he is able to speak in full sentences. He remains tachycardic in the 100 range. Normal lactic level. blood cx have been drawn. No meeting criteria for severe sepsis. 7am Care turned to Dr Hoff Discussion: 1. actue hemoptysis - due to pneumonia, possible pulmonary infarct. Sputum cx is pending 2. small PE in anterior segamaental artery - can't start heparin due to acute and ongoing hemoptosis 3. New dx CHF with pulmonary edema and LE edema. responding to lasix 4. Elevated trop with non-specific ST changes. 2nd trop is trending down. He did get aspirin. No ongoing chest pain. No heparin as no pain and hemoptysis. 5. RULobe pneumonia, has recieved zosyn, no evidence of severe sepsis Disposition: see below, along with detailed discharge instructions that have been reviewed with patient as well as indications for ED re-evaluation and additional outpatient follow up Dr Hoff: Received turned over. Assumed care of patient. Reviewed patient's history and physical and workup up to this point. Patient is not hypoxic. His vital signs have been unremarkable. I did discuss the case with Dr. Blake hospitalist at [facility] who accepts the patient in transport. Dr. Myers will be the accepting provider per the transfer center. Patient is stable for transport. I did discuss the need for transport with the patient and family. They expressed understanding and agreement. Critical Care Time <Bisi Shine MD - Last Filed: 12/28/22 00:27> Critical Care Time Critical Care Time: Yes Total Critical Care Time: 37 Attestation: Critical care time is separate from other billable procedures. There is a high probability of a significant, sudden or life-threatening deterioration that requires my full and direct attention, intervention and personal management. This critical care time includes consultation with family and other consulting doctors, review of records, and interpretation of data from labs, EKGs and imaging as well as managements of acute hemoptysis, new congestive heart failure, pulmonary embolism and acute pneumonia. Discharge Plan Departure Patient Disposition: [facility] Clinical Impression: Hemoptysis, Elevated troponin Pneumonia Qualifiers: Pneumonia type: due to unspecified organism Laterality: right Lung location: upper lobe of lung Qualified Code(s): J18.9 - Pneumonia, unspecified organism CHF (congestive heart failure) Qualifiers: Heart failure type: unspecified Heart failure chronicity: acute Qualified Code(s): I50.9 - Heart failure, unspecified
[2022-12-27 04:17] LABS: Troponin I 0.169 ng/mL (0.01-0.034)
[2022-12-27] MEDS: ASPIRIN 81 MG CHEW TAB 324 MG PO (04:23)
--- NOTE | 2022-12-27 04:24 | DI.CT.S_ITS ---
PROCEDURE: CT ANGIO CHEST PE PROTOCOL INDICATIONS: Hemoptysis since 6:00 p.m. TECHNIQUE: After the administration of intravenous contrast, 2 mm thick sections acquired from the pulmonary apices to the posterior costophrenic angles. MIP reformats of the arterial vasculature were utilized. For radiation dose reduction, the following was used: automated exposure control, adjustment of mA and/or kV according to patient size. COMPARISON: None. FINDINGS: Image quality: Excellent. Pulmonary arteries: There is a small filling defect in the anterior segmental or subsegmental artery of the right upper lobe. Remainder of the pulmonary vasculature is clear. Lungs and pleura: Right upper lobe pulmonary infiltrate associated with bilateral small pleural effusions, right greater than left. Reactive appearing mediastinal lymph nodes present as well. Left lung clear. Mediastinum: Heart size is enlarged. No evidence of aortic aneurysm. As above. Bones and chest wall: No suspicious bony lesions. Ribs and thoracic spine appear intact throughout. Thyroid gland unremarkable. No axillary or supraclavicular adenopathy. Bilateral can not recall mass T noted. Abdomen: Visualized upper abdominal solid organs appear normal in the early arterial phase of enhancement. Reflux of contrast into the hepatic IVC noted IMPRESSION: 1. Right upper lobe infiltrate, consistent with pneumonia. Associated reactive appearing lymph nodes noted in the mediastinum. 2. Cardiomegaly and small bilateral pleural effusions, right greater than left. 3. Tiny possible right upper lobe pulmonary embolism. Note: Final report is essentially concordant with preliminary interpretation by [facility] Approved by: Maco Evans M.D. on 12/27/2022 at 8:56
[2022-12-27] MEDS: FUROSEMIDE 40 MG/4 ML VIAL IV (04:36)
[2022-12-27 04:46] LABS: NT-proBNP (BNP-Adult 18+) 6600 pg/mL (<125)
[2022-12-27 04:49] LABS: Lactate (Lactic Acid) 1.8 mmol/L (0.7-2.1)
[2022-12-27] MEDS: PIPERACILLIN/TAZO 4.5 GM in SODIUM CHLORIDE 0.9% 100 ML IV (05:10)
[2022-12-27 06:31] LABS: Troponin I 0.127 ng/mL (0.01-0.034)
[2022-12-27 06:32] LABS: Adenovirus Not Detected (Not Detect); B. parapertussis Not Detected (Not Detecte); Bordetella pertussis Not Detected (Not Detecte); Chlamydophila pneumoniae Not Detected (Not Detect); Coronavirus 229E Not Detected (Not Detect); Coronavirus HKU1 Not Detected (Not Detect); Coronavirus NL 63 Not Detected (Not Detect); Coronavirus OC43 Not Detected (Not Detect); Human Metapneumovirus Not Detected (Not Detect); Human Rhinovirus/Enterovirus Not Detected (Not Detect); Influenza A Not Detected (Not Detect); Influenza B Not Detected (Not Detect); Mycoplasma pneumoniae Not Detected (Not Detect); Parainfluenza Virus 1 Not Detected (Not Detect); Parainfluenza Virus 2 Not Detected (Not Detect); Parainfluenza Virus 3 Not Detected (Not Detect); Parainfluenza Virus 4 Not Detected (Not Detect); Respiratory Syncytial Virus Not Detected (Not Detect); SARS- CoV-2 Not Detected (Not Detecte)
--- NOTE | 2022-12-27 11:21 | PC.NURSE ---
[facility] [phone] report given
== END 2022-12-27 12:17 | disposition short-term general hospital (02) ==
PROVIDERS: Emergency Medicine; Emergency Provider Emergency Medicine; Family Provider Emergency Medicine
DX: J18.9 Pneumonia, unspecified organism (principal); I50.9 Heart failure, unspecified; R77.8 Other specified abnormalities of plasma proteins; R04.2 Hemoptysis; Z20.822 Contact with and (suspected) exposure to COVID-19
CPT/HCPCS: 36415; 71045; 71275; 80053; 82550; 82553; 83605; 83690; 83735; 83880; 84484; 85025; 85610; 85730; 87040; 87205; 87633; 87635; 93005; 93010; 96365; 96375; 99285; 99291; C9803; J1940; J2543; Q9967

== ENCOUNTER 2023-01-12 18:16 | Emergency (ER) | payer OTHER, MEDICAID, SELFPAY ==
[2023-01-12] VITALS (11 sets, daily range): BP systolic 137–176; BP diastolic 97–117; PULSE 86–102; RESP 18–26; TEMP 36.3; O2SAT 97–99
--- NOTE | 2023-01-12 18:29 | DI.RAD.S_ITS ---
PROCEDURE: XR CHEST 1V INDICATIONS: chest pain TECHNIQUE: One view of the chest was acquired. COMPARISON: [facility], CR, XR CHEST 1V, 12/27/2022, 3:29. FINDINGS: Surgical changes and devices: None. Lungs and pleura: Persistent consolidation involving the right mid lung zone abutting the right minor fissure. Diffuse interstitial prominence with central vascular congestion. Suspected small bilateral pleural effusions. No pneumothorax. Mediastinum: Mediastinal contours appear stable. Heart size is enlarged. Bones and chest wall: No suspicious bony lesions. Overlying soft tissues appear unremarkable. IMPRESSION: Persistent cardiomegaly with findings compatible with pulmonary edema/CHF. Persistent consolidation projecting over the right mid lung zone which may represent focal pleural effusion versus focal airspace disease. Overall, no significant interval change. Dictated by: Ck Pantoja M.D. on 01/12/2023 at 19:18 Approved by: Ck Pantoja M.D. on 01/12/2023 at 19:20
--- NOTE | 2023-01-12 19:10 | ED_ITS ---
HPI - Chest Pain General Chief Complaint: Chest Pain Stated Complaint: CHEST PAIN Time Seen by Provider: 01/12/23 18:45 Source: patient and family Mode of arrival: Ambulatory History of Present Illness HPI narrative: Patient brought in by father from home for complaints of substernal pressure nonradiating no nausea no sweating no diaphoresis, onset last night. Worse with walking which will induce shortness of breath as well. Patient has significant history of non-STEMI with new onset CHF and pulmonary embolism seen here earlier this month and transferred to [facility] and stayed for 7 days for treatment for community-acquired pneumonia which he completed his doxycycline. He is still on Eliquis is on lisinopril and metoprolol. He states his swelling has improved. He did not receive stress test or heart catheterization. He has follow up with management consultant January 22. He did see primary care after discharge. Has another appointment February 05 with pulmonology, has seen Dr. Hare with [facility]. Patient is from [place]. Currently chest pain/epigastric is minimal he states. Related Data Home Medications Medication Instructions Recorded Confirmed apixaban 5 mg (74 tabs) tablets in 5 mg PO DAILY 01/12/23 01/12/23 a dose pack (Eliquis DVT-PE Treat 30D Start) lisinopril 5 mg tablet 5 mg PO DAILY 01/12/23 01/12/23 metoprolol tartrate 25 mg tablet 25 mg PO DAILY 01/12/23 01/12/23 Previous Rx's Medication Instructions Recorded ondansetron 4 mg disintegrating 4 mg PO Q8H PRN nausea and 01/12/23 tablet vomiting #10 tabs pantoprazole 40 mg tablet,delayed 40 mg PO DAILY #14 tabs 01/12/23 release (Protonix) Allergies Allergy/AdvReac Type Severity Reaction Status Date / Time No Known Drug Allergies Allergy Verified 01/12/23 18:27 Review of Systems Review of Systems Narrative: GENERAL: negative chills, fatigue, malaise, fever, sweats. HEENT: negative sinus pain, ear pain, sore throat RESPIRATORY: negative dyspnea, cough CARDIOVASCULAR: Positive chest pain, negative palpitations GASTROINTESTINAL: negative nausea, vomiting, abdominal pain : negative dysuria, frequency, hematuria MUSCULOSKELETAL: negative muscle or bony pain SKIN: negative rash, skin lesions NEUROLOGIC: negative weakness, numbness ROS Unobtainable: All systems reviewed & are unremarkable except as noted in HPI and below Patient History Medical History Hypertension Seizure disorder Social History Smoking Status: Former smoker Smoking Status: Former smoker alcohol intake frequency: 0-2 drinks per day Substance Use Type: does not use Exam Narrative Exam Narrative: GENERAL: in no distress, not toxic not dyspneic HEAD: Normocephalic. EYES: Pupils equal round ENT: Mucous membranes moist. NECK: Trachea midline. CARDIOVASCULAR: Regular rate and rhythm without murmurs, chest nontender RESPIRATORY: Clear to auscultation. Breath sounds equal bilaterally. No wheezes, rales, or rhonchi. GASTROINTESTINAL: Abdomen soft, mild epigastric tenderness but no peritoneal signs bowel sounds are present. EXTREMITIES: No gross deformities. There is 2+ ankle and foot edema, feet warm soft and pink with strong pedal pulse with brisk cap refills. BACK: No flank tenderness. NEURO: AOx4. SKIN: Warm and dry PSYCH: Not anxious, is cooperative Initial Vital Signs Initial Vital Signs: Vital Signs Temperature 97.3 F L 01/12/23 18:24 Pulse Rate 102 H 01/12/23 18:24 Respiratory Rate 22 01/12/23 18:24 Blood Pressure 176/117 H 01/12/23 18:24 Pulse Oximetry 97 01/12/23 18:24 Oxygen Delivery Method 01/12/23 18:24 Course Orders Ordered: ED Orders 01/12/23 18:29 XR chest 1V Stat EKG-12 Lead Stat 01/12/23 18:55 BNP [NT-proBNP (BNP-Adult 18+)] Stat Complete Blood Count AUTO DIFF Stat Comprehensive Metabolic Panel Stat Lactate (Lactic Acid) Stat Lipase Stat Magnesium Stat Partial Thromboplastin Time Stat Procalcitonin Stat Prothrombin Time INR Stat Troponin & CK Cardiac Panel Stat 01/12/23 19:10 COVID19 -Nasal RAPID/Pre-Proc Stat 01/12/23 20:24 CT angio chest PE protocol Stat 01/12/23 21:00 Troponin & CK Cardiac Panel Stat 01/12/23 21:18 Blood Culture Stat Discontinued Medications Al Hydrox/Mg Hydrox/Simethicone (Mag Hydrox/Alum/Simeth 30 Ml Udc) 30 ml PO NOW ONE Stop: 02/20/23 20:52 Last Admin: 01/12/23 20:59 Dose: Not Given Documented By: CARLOS Al Hydrox/Mg Hydrox/Simethicone 20 ml/ Lidocaine HCl 15 ml 0 ml PO NOW ONE Stop: 01/12/23 20:31 Last Admin: 01/12/23 20:58 Dose: 35 ml Documented By: CARLOS Ondansetron HCl (Ondansetron 4 Mg/2 Ml Inj) 4 mg IV NOW ONE Stop: 01/12/23 20:31 Last Admin: 01/12/23 20:58 Dose: 4 mg Documented By: CARLOS Pantoprazole Sodium (Pantoprazole 40 Mg Vial) 40 mg IV NOW ONE Stop: 01/12/23 20:31 Last Admin: 01/12/23 20:58 Dose: 40 mg Documented By: CARLOS Vital Signs Vital signs: Vital Signs - 8 hr 01/12/23 19:30 01/12/23 19:30 01/12/23 20:00 Pulse Rate 90 Respiratory Rate 19 Blood Pressure 138/99 H 137/103 H Pulse Oximetry 97 01/12/23 20:00 01/12/23 20:30 01/12/23 20:30 Pulse Rate 86 89 Respiratory Rate 18 22 Blood Pressure 146/111 H Pulse Oximetry 99 98 01/12/23 21:00 01/12/23 21:30 01/12/23 21:51 Pulse Rate 89 93 H Respiratory Rate Blood Pressure 142/107 H Pulse Oximetry 98 98 01/12/23 21:51 Pulse Rate 90 Respiratory Rate 21 Blood Pressure Pulse Oximetry 97 MDM - Chest Pain Lab Data 01/12/23 18:55 01/12/23 18:55 Labs: Lab Results 01/12/23 01/12/23 01/12/23 Range/Units 18:55 18:55 18:55 WBC 5.3 (4.5-11.0) X10^3/uL RBC 5.80 (4.5-5.9) X10^6/uL Hgb 11.8 L (13.5-17.5) g/dL Hct 37.7 L (41-53) % MCV 65.1 L (80-100) fL MCH 20.3 L (26-34) PG MCHC 31.2 (30-36) % RDW 20.3 H (11.6-14.8) % Plt Count 414 H (150-400) X10^3/uL Neut % (Auto) 41.7 L (50-75) % Lymph % (Auto) 44.6 H (25-40) % Arthur % (Auto) 10.4 (3-14) % Eos % (Auto) 1.8 L (2-4) % Baso % (Auto) 1.5 (0-2) % Neut # (Auto) 2200 (1197-9064) /uL Lymph # (Auto) 2400 (1232-4173) /uL Arthur # (Auto) 600 (0-900) /uL Eos # (Auto) 100 (0-450) /uL Baso # (Auto) 100 (0-100) /uL RBC Morphology See below Poikilocytosis 2+ H Anisocytosis 2+ H Microcytosis 2+ H Target Cells 2+ H Ovalocytes 1+ H PT 15.0 H (10.1-12.7) SECONDS INR 1.3 (0.9-1.3) APTT 31 (26-36) SECONDS Sodium 139 (137-145) mmol/L Potassium 3.9 (3.4-5.1) mmol/L Chloride 106 (98-107) mmol/L Carbon Dioxide 24 (22-32) mmol/L BUN 19 (9-20) mg/dL Creatinine 1.07 (0.66-1.25) mg/dL Estimated GFR > 60 (>60) mL/min BUN/Creatinine Ratio 17.8 (6-22) Glucose 84 (70-100) mg/dL Lactate (0.7-2.1) mmol/L Calcium 8.9 (8.4-10.2) mg/dL Magnesium 1.9 (1.6-2.3) mg/dL Total Bilirubin 0.4 (0.2-1.3) mg/dL AST 40 (17-59) IU/L ALT 44 (<50) IU/L Alkaline Phosphatase 66 (38-126) U/L Total Creatine Kinase 63 (55-170) U/L CK-MB (CK-2) TNP CK-MB (CK-2) Rel Index TNP Troponin I < 0.012 (0.01-0.034) ng/mL NT-Pro-B Natriuret Pep (<125) pg/mL Total Protein 7.1 (6.3-8.2) g/dL Albumin 3.7 (3.5-5.0) g/dL Globulin 3.4 (1.7-4.1) g/dL Albumin/Globulin Ratio 1.1 (1.0-2.8) Lipase 103 (23-300) U/L Procalcitonin (<0.5) ng/mL SARS-CoV-2 (PCR) (Negative) 01/12/23 01/12/23 01/12/23 Range/Units 18:55 18:55 18:55 WBC (4.5-11.0) X10^3/uL RBC (4.5-5.9) X10^6/uL Hgb (13.5-17.5) g/dL Hct (41-53) % MCV (80-100) fL MCH (26-34) PG MCHC (30-36) % RDW (11.6-14.8) % Plt Count (150-400) X10^3/uL Neut % (Auto) (50-75) % Lymph % (Auto) (25-40) % Arthur % (Auto) (3-14) % Eos % (Auto) (2-4) % Baso % (Auto) (0-2) % Neut # (Auto) (4555-2514) /uL Lymph # (Auto) (9733-2953) /uL Arthur # (Auto) (0-900) /uL Eos # (Auto) (0-450) /uL Baso # (Auto) (0-100) /uL RBC Morphology Poikilocytosis Anisocytosis Microcytosis Target Cells Ovalocytes PT (10.1-12.7) SECONDS INR (0.9-1.3) APTT (26-36) SECONDS Sodium (137-145) mmol/L Potassium (3.4-5.1) mmol/L Chloride (98-107) mmol/L Carbon Dioxide (22-32) mmol/L BUN (9-20) mg/dL Creatinine (0.66-1.25) mg/dL Estimated GFR (>60) mL/min BUN/Creatinine Ratio (6-22) Glucose (70-100) mg/dL Lactate 1.1 (0.7-2.1) mmol/L Calcium (8.4-10.2) mg/dL Magnesium (1.6-2.3) mg/dL Total Bilirubin (0.2-1.3) mg/dL AST (17-59) IU/L ALT (<50) IU/L Alkaline Phosphatase (38-126) U/L Total Creatine Kinase (55-170) U/L CK-MB (CK-2) CK-MB (CK-2) Rel Index Troponin I (0.01-0.034) ng/mL NT-Pro-B Natriuret Pep 8550 H (<125) pg/mL Total Protein (6.3-8.2) g/dL Albumin (3.5-5.0) g/dL Globulin (1.7-4.1) g/dL Albumin/Globulin Ratio (1.0-2.8) Lipase (23-300) U/L Procalcitonin 0.10 (<0.5) ng/mL SARS-CoV-2 (PCR) (Negative) 01/12/23 01/12/23 Range/Units 19:10 21:00 WBC (4.5-11.0) X10^3/uL RBC (4.5-5.9) X10^6/uL Hgb (13.5-17.5) g/dL Hct (41-53) % MCV (80-100) fL MCH (26-34) PG MCHC (30-36) % RDW (11.6-14.8) % Plt Count (150-400) X10^3/uL Neut % (Auto) (50-75) % Lymph % (Auto) (25-40) % Arthur % (Auto) (3-14) % Eos % (Auto) (2-4) % Baso % (Auto) (0-2) % Neut # (Auto) (5256-0515) /uL Lymph # (Auto) (0320-5693) /uL Arthur # (Auto) (0-900) /uL Eos # (Auto) (0-450) /uL Baso # (Auto) (0-100) /uL RBC Morphology Poikilocytosis Anisocytosis Microcytosis Target Cells Ovalocytes PT (10.1-12.7) SECONDS INR (0.9-1.3) APTT (26-36) SECONDS Sodium (137-145) mmol/L Potassium (3.4-5.1) mmol/L Chloride (98-107) mmol/L Carbon Dioxide (22-32) mmol/L BUN (9-20) mg/dL Creatinine (0.66-1.25) mg/dL Estimated GFR (>60) mL/min BUN/Creatinine Ratio (6-22) Glucose (70-100) mg/dL Lactate (0.7-2.1) mmol/L Calcium (8.4-10.2) mg/dL Magnesium (1.6-2.3) mg/dL Total Bilirubin (0.2-1.3) mg/dL AST (17-59) IU/L ALT (<50) IU/L Alkaline Phosphatase (38-126) U/L Total Creatine Kinase 58 (55-170) U/L CK-MB (CK-2) TNP CK-MB (CK-2) Rel Index TNP Troponin I < 0.012 (0.01-0.034) ng/mL NT-Pro-B Natriuret Pep (<125) pg/mL Total Protein (6.3-8.2) g/dL Albumin (3.5-5.0) g/dL Globulin (1.7-4.1) g/dL Albumin/Globulin Ratio (1.0-2.8) Lipase (23-300) U/L Procalcitonin (<0.5) ng/mL SARS-CoV-2 (PCR) Negative (Negative) Imaging Data CT scan - chest: Radiologist's Impression: [address] [address] [address] Scan Report Signed Patient: Jacek Mcdonald MR#: [id number] : 1985 Acct:[id number] Age/Sex: 37 / M Date of Service: 01/12/23 Loc: ED Accession Number: [id number] ?? Procedure: CT angio chest PE protocol Ordering Provider: Donn Randolph MD PROCEDURE:? CT ANGIO CHEST PE PROTOCOL ? INDICATIONS:? Chest pain ? TECHNIQUE:? After the administration of intravenous contrast, 2 mm thick sections acquired from the pulmonary apices to the posterior costophrenic angles.? 3-dimensional maximum intensity projection (MIP) coronal and sagittal reformats were then acquired through the thorax.? For radiation dose reduction, the following was used:? automated exposure control, adjustment of mA and/or kV according to patient size.? ? COMPARISON:? [facility], CT, CT ANGIO CHEST PE PROTOCOL, 12/27/2022, 4:52. ? FINDINGS:? Image quality:? Excellent.? ? Pulmonary arteries:? Pulmonary arteries are normal in size, and demonstrate no intraluminal filling defects to suggest central pulmonary embolism.? ? Lungs and pleura:? Lungs are abnormal on the right with an area dense pneumonia right upper lobe anterolaterally having consolidated to a greater degree but diminished in size mildly.? Mild early central necrosis may be present involving this area of pneumonia, seen on series 4, image 56.? .? No pleural effusions or pneumothorax.? Central and peripheral airways are patent.? ? Mediastinum:? Heart size is normal, without pericardial effusion.? Mild reactive right mediastinal and hilar adenopathy.? Thoracic aorta is normal in caliber and enhancement.? Esophagus is normal in caliber, without hiatal hernia.? ? Bones and chest wall:? No suspicious bony lesions.? Ribs and thoracic spine appear intact throughout.? Thyroid gland is not well seen.? No axillary or supraclavicular adenopathy.? ? ? Abdomen:? Visualized upper abdominal solid organs appear normal in the early arterial phase of enhancement.? ? IMPRESSION:? Evolution pneumonia within the right upper lobe with possible early central necrosis involving the area increased consolidation in an area prior alveolar infiltration.? No pulmonary embolus seen.? No drainable abscess present.? Follow-up CT scanning in several days likely is warranted to assess for further cavitation. ? ? Dictated by: Dangelo Holguin M.D. on 01/12/2023 at 21:06 ? ? Approved by: Dangelo Holguin M.D. on 01/12/2023 at 21:09 ? Chest x-ray: Radiologist's Impression: [address] [address] XRay Report Signed Patient: Jacek Mcdonald MR#: [id number] : 1985 Acct:[id number] Age/Sex: 37 / M Date of Service: 01/12/23 Loc: ED Accession Number: [id number] ?? Procedure: XR chest 1V Ordering Provider: Donn Randolph MD PROCEDURE:? XR CHEST 1V ? INDICATIONS:? chest pain ? TECHNIQUE:? One view of the chest was acquired.? ? COMPARISON:? [facility], CR, XR CHEST 1V, 12/27/2022, 3:29. ? FINDINGS:? ? Surgical changes and devices:? None.? ? Lungs and pleura:? Persistent consolidation involving the right mid lung zone abutting the right minor fissure.? Diffuse interstitial prominence with central vascular congestion.? Suspected small bilateral pleural effusions.? No pneumothorax. ? Mediastinum:? Mediastinal contours appear stable.? Heart size is enlarged.? ? Bones and chest wall:? No suspicious bony lesions.? Overlying soft tissues appear unremarkable.? ? IMPRESSION:? Persistent cardiomegaly with findings compatible with pulmonary edema/CHF.? Persistent consolidation projecting over the right mid lung zone which may represent focal pleural effusion versus focal airspace disease.? Overall, no significant interval change. ? ? Dictated by: Ck Pantoja M.D. on 01/12/2023 at 19:18 ? ? Approved by: Ck Pantoja M.D. on 01/12/2023 at 19:20 ? MDM Narrative Medical decision making narrative: Patient brought in by father from home for complaints of substernal pressure nonradiating no nausea no sweating no diaphoresis, onset last night. Worse with walking which will induce shortness of breath as well. Patient has significant history of non-STEMI with new onset CHF and pulmonary embolism seen here earlier this month and transferred to [facility] and stayed for 7 days for treatment for community-acquired pneumonia which he completed his doxycycline. He is still on Eliquis is on lisinopril and metoprolol. He states his swelling has improved. He did not receive stress test or heart catheterization. He has follow up with management consultant January 22. He did see primary care after discharge. Has another appointment February 05 with pulmonology, has seen Dr. Hare with [facility]. Patient is from [place]. Currently chest pain/epigastric is minimal he states. After history and exam CBC CMP troponin x2, EKG chest x-ray have been ordered, PT PTT INR, BNP MDM CC: Chest pain Complicating co-morbidities: Recent non-STEMI, new onset CHF Data collected from: Patient and father Medical records reviewed: Medical records from ER visit earlier this month Differential considered: Includes but not limited to STEMI non-STEMI CHF, acute coronary syndrome Exam documented above, pertinent findings include: Nontender chest Lab Test results independently reviewed as above. Pertinent findings: Hemoglobin 11.8/hematocrit 37.7 platelets 414, PT 15 INR 1.3 PTT 31, BNP 8550 Independently reviewed EKG as above normal sinus rhythm rate [address] elevation or depression Imaging studies independently reviewed: Chest x-ray no significant change from previous chest x-ray earlier this month persistent cardiomegaly compatible with pulmonary edema/CHF CT chest evolution pneumonia within the right upper lobe with possible early central necrosis involving the area increased consolidation in area of prior ability or infiltration. No pulmonary embolus seen. No drainable abscess seen. Follow-up CT scan in several days likely is warranted to assess further cavitation Consultations: 8:28 p.m.. Spoke with cardiology [facility] Dr. Vázquez, he has reviewed patient's chart during his course of stay. Patient cardiac enz ymes were due to the large pulmonary embolism. Patient should not be on diuretics due to the pulmonary embolism that cause right ventricular strain, would not diurese patient, patient not candidate for stress test due to recent pulmonary embolism. No heart catheterization was done because they felt patient elevated troponin was due to pulmonary embolism. No indication to admit or transfer patient according to Dr. Vázquez, he does agree patient should get repeat CT scan of chest. However no repeat echocardiogram or repeat troponins indicated. 9:30 p.m.. Reviewed with hospitalist, Rebeca Barksdale, at this time no admission criteria. Reviewed CT with her. This may be resolution or sequelae from the pulmonary embolism but does not require admission or further antibiotics. Advises for patient to be discharged home, patient not requiring supplemental oxygen. No respiratory distress. 9:49 p.m.. I did review with Dr. Dangelo Holguin, radiologist that read the CT scan imaging tonight. This is not due to the pulmonary embolism evolution. This is likely resolving pneumonia area from previous CT scan Treatments: GI cocktail Zofran Protonix Re-evaluations: 9:42 p.m.. Re-evaluation and reviewed patient results with father. Pain-free after GI cocktail and Protonix. No epigastric pain or tenderness. No chest pain. Reviewed with them likely developing possible gastritis with recent stressors and hospitalization this past month. CT chest is reassuring. Results on necrosis may be due to resolving PE. Patient not requiring supplemental oxygen. Has no complaints at time of discharge. Return precautions reviewed with him. He does have scheduled follow up appointment [facility] cardiology and primary care. He and father desire discharge home. Discussion: Appropriate for discharge home. I did review with management consultant and hospitalist, reviewed with patient and father as well. Pain-free after GI cocktail and Protonix. Exam is reassuring. Imaging and blood work and EKG also reassuring. Repeat troponin done as well. Pain was constant epigastric for the past 24 hours and relieved with GI cocktail. Possibly developing gastritis or stress ulcer. Patient hemodynamically stable. Not toxic at discharge. Return precautions reviewed with patient and father and they desire discharge home. They have appropriate follow up with primary care as well as Cardiology, necrosis area may be due to previous pulmonary embolism area. CT scan imaging earlier this month did show pulmonary embolism right upper lobe. This is same areas today showing necrosis,. Not requiring supplemental oxygen. No respiratory distress. No diuresis as recommended by Cardiology aaliyah Vázquez Diagnosis: Epigastric pain Discharge Plan Departure Patient Disposition: Home Clinical Impression: Acute epigastric pain Instructions: DI for Gastritis, DI for Abdominal Pain-Adult Activity Restrictions/Additional Instructions: See family doctor as scheduled. Please do continue home medications. Prescription for Protonix has been sent to your [facility] in [place] to pick and continue tomorrow. Return if worse if any questions or concerns. Nausea medication Zofran has been prescribed as well. No spicy foods. No carbonated drinks. Prescriptions: New pantoprazole [Protonix] 40 mg tablet,delayed release (DR/EC) 40 mg PO DAILY Qty: 14 0RF ondansetron 4 mg tablet,disintegrating 4 mg PO Q8H PRN (Reason: nausea and vomiting) Qty: 10 0RF No Action lisinopril 5 mg tablet 5 mg PO DAILY metoprolol tartrate 25 mg tablet 25 mg PO DAILY Eliquis DVT-PE Treat 30D Start 5 mg (74 tabs) tablets,dose pack 5 mg PO DAILY Referrals: Jose Hare MD [Primary Care Provider] - Stand Alone Forms: Patient Portal/API
[2023-01-12 19:22] LABS: INR 1.3 (0.9-1.3)
[2023-01-12 19:24] LABS: PTT Partial Thromboplastin Tim 31 SECONDS (26-36)
[2023-01-12 19:27] LABS: Add Manual Diff / Slide Review NO; Basophils Absolute Auto 100 /uL (0-100); Basophils Percent Auto 1.5 % (0-2); Eosinophils Absolute Auto 100 /uL (0-450); Eosinophils Percent Auto 1.8 % (2-4); Hematocrit 37.7 % (41-53); Hemoglobin 11.8 g/dL (13.5-17.5); Lymphocytes Absolute Auto 2400 /uL (1100-4500); Lymphocytes Percent Auto 44.6 % (25-40); Mean Corpuscular HGB Conc 31.2 % (30-36); Mean Corpuscular Hemoglobin 20.3 PG (26-34); Mean Corpuscular Volume 65.1 fL (80-100); Monocytes Absolute Auto 600 /uL (0-900); Monocytes Percent Auto 10.4 % (3-14); Neutrophils Absolute Auto 2200 /uL (1500-7000); Neutrophils Percent Auto 41.7 % (50-75); Red Cell Distribution Width 20.3 % (11.6-14.8); White Blood Cell Count 5.3 X10^3/uL (4.5-11.0)
[2023-01-12 19:30] LABS: Alanine Aminotransferase 44 IU/L (<50); Albumin 3.7 g/dL (3.5-5.0); Albumin Globulin Ratio 1.1 (1.0-2.8); Alkaline Phosphatase 66 U/L (38-126); Aspartate Aminotransferase 40 IU/L (17-59); BUN Creatinine Ratio 17.8 (6-22); Bilirubin Total 0.4 mg/dL (0.2-1.3); Blood Urea Nitrogen 19 mg/dL (9-20); Calcium 8.9 mg/dL (8.4-10.2); Carbon Dioxide 24 mmol/L (22-32); Chloride 106 mmol/L (98-107); Creatine Kinase 63 U/L (55-170); Estimated Glomerular Filt Rate > 60 mL/min (>60); Globulin 3.4 g/dL (1.7-4.1); Glucose 84 mg/dL (70-100); HEMOLYSIS < 15 (0-50); Lipase 103 U/L (23-300); Magnesium 1.9 mg/dL (1.6-2.3); Potassium 3.9 mmol/L (3.4-5.1); Sodium 139 mmol/L (137-145); Total Protein 7.1 g/dL (6.3-8.2)
[2023-01-12 19:35] LABS: COVID19 -Nasal RAPID Negative (Negative)
[2023-01-12 19:38] LABS: NT-proBNP (BNP-Adult 18+) 8550 pg/mL (<125)
[2023-01-12 19:41] LABS: Troponin I < 0.012 ng/mL (0.01-0.034)
[2023-01-12 19:45] LABS: Anisocytosis 2+; Microcytosis 2+; Ovalocytes 1+; Poikilocytosis 2+; Target Cells 2+
[2023-01-12 19:46] LABS: Platelet Count 414 X10^3/uL (150-400)
--- NOTE | 2023-01-12 20:24 | DI.CT.S_ITS ---
PROCEDURE: CT ANGIO CHEST PE PROTOCOL INDICATIONS: Chest pain TECHNIQUE: After the administration of intravenous contrast, 2 mm thick sections acquired from the pulmonary apices to the posterior costophrenic angles. 3-dimensional maximum intensity projection (MIP) coronal and sagittal reformats were then acquired through the thorax. For radiation dose reduction, the following was used: automated exposure control, adjustment of mA and/or kV according to patient size. COMPARISON: [facility], CT, CT ANGIO CHEST PE PROTOCOL, 12/27/2022, 4:52. FINDINGS: Image quality: Excellent. Pulmonary arteries: Pulmonary arteries are normal in size, and demonstrate no intraluminal filling defects to suggest central pulmonary embolism. Lungs and pleura: Lungs are abnormal on the right with an area dense pneumonia right upper lobe anterolaterally having consolidated to a greater degree but diminished in size mildly. Mild early central necrosis may be present involving this area of pneumonia, seen on series 4, image 56. . No pleural effusions or pneumothorax. Central and peripheral airways are patent. Mediastinum: Heart size is normal, without pericardial effusion. Mild reactive right mediastinal and hilar adenopathy. Thoracic aorta is normal in caliber and enhancement. Esophagus is normal in caliber, without hiatal hernia. Bones and chest wall: No suspicious bony lesions. Ribs and thoracic spine appear intact throughout. Thyroid gland is not well seen. No axillary or supraclavicular adenopathy. Abdomen: Visualized upper abdominal solid organs appear normal in the early arterial phase of enhancement. IMPRESSION: Evolution pneumonia within the right upper lobe with possible early central necrosis involving the area increased consolidation in an area prior alveolar infiltration. No pulmonary embolus seen. No drainable abscess present. Follow-up CT scanning in several days likely is warranted to assess for further cavitation. Dictated by: Dangelo Holguin M.D. on 01/12/2023 at 21:06 Approved by: Dangelo Holguin M.D. on 01/12/2023 at 21:09
[2023-01-12] MEDS: MAG HYDROX/ALUMINUM/SIMETH SUS 20 ML, LIDOCAINE VISCOUS 2% 15 ML PO (20:58)
[2023-01-12] MEDS: PANTOPRAZOLE 40 MG VIAL IV (20:58)
[2023-01-12] MEDS: ONDANSETRON 4 MG/2 ML INJ IV (20:58)
[2023-01-12 21:16] LABS: Creatine Kinase 58 U/L (55-170)
[2023-01-12 21:29] LABS: Troponin I < 0.012 ng/mL (0.01-0.034)
[2023-01-12 21:55] LABS: Lactate (Lactic Acid) 1.1 mmol/L (0.7-2.1)
== END 2023-01-12 22:03 | disposition home or self-care (01) ==
PROVIDERS: Emergency Provider Emergency Medicine; Family Provider Emergency Medicine; PCP Student in an Organized Health Care Education/Training Program
DX: R10.13 Epigastric pain (principal); Z79.01 Long term (current) use of anticoagulants; Z86.79 Personal history of other diseases of the circulatory system; Z20.822 Contact with and (suspected) exposure to COVID-19
CPT/HCPCS: 36415; 71045; 71275; 80053; 82550; 83605; 83690; 83735; 83880; 84145; 84484; 85025; 85610; 85730; 87635; 93005; 96374; 96375; 99284; C9803; C9113; J2405; Q9967

== ENCOUNTER 2023-12-01 00:13 | Inpatient (IN) | payer OTHER, MEDICAID, SELFPAY ==
[2023-12-01] VITALS (69 sets, daily range): BP systolic 121–173; BP diastolic 74–117; PULSE 81–119; RESP 16–30; TEMP 35.9–36.7; O2SAT 84–100; BMI 41.3; BMI 47.3
--- NOTE | 2023-12-01 00:40 | ED.SOB ---
HPI - SOB/Dyspnea General Chief Complaint: Shortness of Breath/Dyspnea Stated Complaint: trouble breathing Time Seen by Provider: 12/01/23 00:39 Source: patient and family Mode of arrival: Wheelchair History of Present Illness HPI Narrative: Patient 38-year-old male history of morbid obesity, congestive heart failure, hypertension, pulmonary embolism presenting today with chest pain. He was at would be general earlier this month for an unknown reason he can not remember. Today he was getting up to use the restroom he had urge to urinate when he had heavy pressure on his chest he ended up having some urinary incontinence pressure in his chest lasted for about 45 seconds and then resolved. Still is having come some kind of throat pain. Dad reports that he frequently is noncompliant with medication difficult to tell if he is taking it or not. He does look short of breath and diaphoretic. Reports that chest pain has improved. He is tachycardic. No fever chills or cough. No nausea vomiting or abdominal pain. He is wearing his compression socks. Patient somehow disappears at times and is noncompliant with medication. He has not been taking his medication for an unknown amount time. His dad went looking for him found him today brought him to the ED. Patient is followed by cardiology at [facility]. Dad reports that he has not followed up with them Records from [facility] have been received and reviewed he was seen evaluated lobito Mancuso for abdominal pain and epigastric pain radiating to the left lower quadrant. He had blood work EKG and ultimately discharged home. No indication that he was having chest pain or shortness of breath that time. There is reports he had elevated blood pressure he was given 15 mg IV labetalol. Related Data Home Medications Medication Instructions Recorded Confirmed lisinopril 5 mg tablet 5 mg PO DAILY 01/12/23 12/01/23 empagliflozin 10 mg tablet 10 mg PO DAILY 12/01/23 12/01/23 (Jardiance) Allergies Allergy/AdvReac Type Severity Reaction Status Date / Time No Known Drug Allergies Allergy Verified 01/12/23 18:27 Patient History Medical History Hypertension Seizure disorder Social History household members: family Smoking Status: Former smoker Smoking Status: Former smoker alcohol intake frequency: 0-2 drinks per day Substance Use Type: does not use Exam Initial Vital Signs Initial Vital Signs: Vital Signs Temperature 96.7 F L 12/01/23 00:36 Pulse Rate 118 H 12/01/23 00:36 Respiratory Rate 20 12/01/23 00:36 Blood Pressure 125/95 H 12/01/23 00:36 Pulse Oximetry 98 12/01/23 00:36 Oxygen Delivery Method Room Air 12/01/23 00:36 GENERAL: Mildly pale diaphoretic with mild conversational dyspnea HEENT: Head atraumatic,EOMI, pupils reactive, face symmetric, [moist] mucous membranes CARDIOVASCULAR: Tachycardic regular no murmur RESPIRATORY: Patient has coarse breath sounds bilaterally with conversational dyspnea ABDOMEN: Soft, nontender. Normoactive bowel sounds all 4 quadrants. No guarding or rebound. EXTREMITIES: Normal range of motion, no clubbing. +1 pitting cool to touch Neurovascularly intact NEUROLOGICAL: Alert and oriented x4.Normal gait and speech. SKIN: Legs are slightly cool and mottled Course Orders Ordered: ED Orders 12/01/23 00:39 XR chest 1V Stat EKG-12 Lead Stat 12/01/23 00:47 Complete Blood Count AUTO DIFF Stat Comprehensive Metabolic Panel Stat Lipase Stat Magnesium Stat PTT Partial Thromboplastin Wang Stat Prothrombin Time INR Stat TSH [Thyroid Stimulating Hormone] Stat Troponin & CK Cardiac Panel Stat 12/01/23 02:32 CT angio chest PE protocol Stat 12/01/23 03:14 BNP [NT-proBNP (BNP-Adult 18+)] Stat Trop I [Troponin I] Stat 12/01/23 05:12 Urine Drug Screen, Rapid Stat Acetaminophen (Acetaminophen 325 Mg Tablet) 650 mg PO Q6H PRN PRN Reason: Fever/Mild Pain (1-3) Al Hydrox/Mg Hydrox/Simethicone (Mag Hydrox/Alum/Simeth 30 Ml Udc) 30 ml PO Q6HR PRN PRN Reason: Dyspepsia Carvedilol (Carvedilol 3.125 Mg Tablet) 6.25 mg PO BID HUMBLE Furosemide (Furosemide 40 Mg Tablet) 40 mg PO DAILY HUMBLE Lisinopril (Lisinopril 5 Mg Tablet) 5 mg PO DAILY HUMBLE Magnesium Hydroxide (Magnesium Hydroxide 30 Ml Udc) 30 ml PO DAILY PRN PRN Reason: Constipation Naloxone HCl (Naloxone 0.4 Mg/Ml Vial) 0.2 mg IV Q2MIN PRN PRN Reason: Opiate Reversal Ondansetron HCl (Ondansetron 4 Mg Odt) 4 mg PO Q8HR PRN PRN Reason: Nausea And Vomiting Discontinued Medications Aspirin (Aspirin 81 Mg Chew Tab) 324 mg PO NOW ONE Stop: 12/01/23 00:40 Last Admin: 12/01/23 00:51 Dose: 324 mg Documented By: TORY Furosemide (Furosemide 40 Mg/4 Ml Vial) 40 mg IV NOW ONE Stop: 12/01/23 03:56 Last Admin: 12/01/23 04:01 Dose: 40 mg Documented By: KRYSTYNA Nitroglycerin (Nitroglycerin 0.4 Mg Sl Tab) 0.4 mg SL [id number] PRN PRN Reason: Chest Pain Last Admin: 12/01/23 01:21 Dose: 0.4 mg Documented By: Admin: 12/01/23 01:14 Dose: 0.4 mg Documented By: Admin: 12/01/23 01:07 Dose: 0.4 mg Documented By: TORY Nitroglycerin (Nitroglycerin 0.4 Mg Sl Tab) 0.4 mg SL NOW ONE Stop: 12/01/23 01:04 Last Admin: 12/01/23 01:11 Dose: Not Given Documented By: TORY Vital Signs Vital signs: Vital Signs - 8 hr 12/01/23 00:36 12/01/23 00:40 12/01/23 00:47 Temperature 96.7 F L Pulse Rate 118 H 119 H 114 H Respiratory Rate 20 21 26 H Blood Pressure 125/95 H Pulse Oximetry 98 98 Oxygen Delivery Method Room Air 12/01/23 00:47 12/01/23 01:00 12/01/23 01:00 Temperature Pulse Rate 114 H Respiratory Rate 23 Blood Pressure 135/96 H 138/106 H Pulse Oximetry 99 Oxygen Delivery Method 12/01/23 01:07 12/01/23 01:14 12/01/23 01:14 Temperature Pulse Rate 111 H 110 H 110 H Respiratory Rate 17 Blood Pressure 138/106 H 130/83 Pulse Oximetry 98 Oxygen Delivery Method 12/01/23 01:14 12/01/23 01:15 12/01/23 01:15 Temperature Pulse Rate 109 H Respiratory Rate 20 Blood Pressure 130/83 136/90 Pulse Oximetry 97 Oxygen Delivery Method Room Air 12/01/23 01:19 12/01/23 01:19 12/01/23 01:21 Temperature Pulse Rate 109 H 109 H Respiratory Rate 16 Blood Pressure 146/99 H 146/99 H Pulse Oximetry 96 Oxygen Delivery Method Room Air 12/01/23 01:30 12/01/23 01:30 12/01/23 01:45 Temperature Pulse Rate 106 H 109 H Respiratory Rate 18 30 H Blood Pressure 126/82 Pulse Oximetry 100 99 Oxygen Delivery Method Room Air 12/01/23 01:45 12/01/23 02:00 12/01/23 02:00 Temperature Pulse Rate 110 H Respiratory Rate 16 Blood Pressure 121/74 155/97 H Pulse Oximetry 100 Oxygen Delivery Method Room Air 12/01/23 02:15 12/01/23 02:15 12/01/23 03:00 Temperature Pulse Rate 107 H 109 H Respiratory Rate 20 18 Blood Pressure 138/85 Pulse Oximetry 96 93 Oxygen Delivery Method Room Air Room Air 12/01/23 03:00 12/01/23 03:01 12/01/23 03:01 Temperature Pulse Rate 109 H Respiratory Rate 18 Blood Pressure 162/97 H 160/108 H Pulse Oximetry Oxygen Delivery Method 12/01/23 03:16 12/01/23 03:16 12/01/23 03:30 Temperature Pulse Rate 105 H 109 H Respiratory Rate 19 21 Blood Pressure 173/93 H Pulse Oximetry 98 Oxygen Delivery Method 12/01/23 03:30 12/01/23 03:45 12/01/23 03:45 Temperature Pulse Rate 105 H Respiratory Rate 23 Blood Pressure 147/85 H 147/101 H Pulse Oximetry 97 Oxygen Delivery Method Room Air 12/01/23 04:00 12/01/23 04:00 12/01/23 04:15 Temperature Pulse Rate 108 H 105 H Respiratory Rate 19 20 Blood Pressure 145/103 H Pulse Oximetry 99 Oxygen Delivery Method Room Air 12/01/23 04:15 12/01/23 04:30 12/01/23 05:00 Temperature Pulse Rate 103 H 105 H Respiratory Rate 18 20 Blood Pressure 146/105 H Pulse Oximetry 97 Oxygen Delivery Method Room Air MDM - SOB/Dyspnea Lab Data 12/01/23 00:47 12/01/23 00:47 Labs: Lab Results 12/01/23 12/01/23 Range/Units 00:47 03:14 WBC 6.0 (4.5-11.0) X10^3/uL RBC 6.71 H (4.5-5.9) X10^6/uL Hgb 13.7 (13.5-17.5) g/dL Hct 43.8 (41-53) % MCV 65.3 L (80-100) fL MCH 20.4 L (26-34) PG MCHC 31.2 (30-36) % RDW 18.3 H (11.6-14.8) % Plt Count 290 (150-400) X10^3/uL Neut % (Auto) 44.3 L (50-75) % Lymph % (Auto) 43.2 H (25-40) % [place] % (Auto) 10.0 (3-14) % Eos % (Auto) 1.0 L (2-4) % Baso % (Auto) 1.5 (0-2) % Neut # (Auto) 2600 (6060-6881) /uL Lymph # (Auto) 2600 (0506-1170) /uL [place] # (Auto) 600 (0-900) /uL Eos # (Auto) 100 (0-450) /uL Baso # (Auto) 100 (0-100) /uL RBC Morphology See below Hypochromasia 1+ H Anisocytosis 1+ H Microcytosis 2+ H Target Cells 2+ H PT 18.8 H (9.4-12.5) SECONDS INR 1.6 H (0.9-1.3) APTT 26 (25.1-36.5) SECONDS Sodium 138 (137-145) mmol/L Potassium 4.6 (3.4-5.1) mmol/L Chloride 109 H (98-107) mmol/L Carbon Dioxide 19 L (22-32) mmol/L BUN 23 H (9-20) mg/dL Creatinine 1.03 (0.66-1.25) mg/dL Estimated GFR > 60 (>60) mL/min BUN/Creatinine Ratio 22.3 H (6-22) Glucose 96 (70-100) mg/dL Hemoglobin A1c 5.8 (4.0-6.0) % Calcium 9.0 (8.4-10.2) mg/dL Magnesium 2.1 (1.6-2.3) mg/dL Total Bilirubin 1.2 (0.2-1.3) mg/dL AST 32 (17-59) IU/L ALT 52 H (<50) IU/L Alkaline Phosphatase 81 (38-126) U/L Total Creatine Kinase 140 (55-170) U/L Troponin I 0.049 H 0.049 H (0.01-0.034) ng/mL NT-Pro-B Natriuret Pep 33023 H (<125) pg/mL Total Protein 6.8 (6.3-8.2) g/dL Albumin 3.4 L (3.5-5.0) g/dL Globulin 3.4 (1.7-4.1) g/dL Albumin/Globulin Ratio 1.0 (1.0-2.8) Triglycerides 71 (35-150) mg/dL Cholesterol 141 (140-199) mg/dL LDL Cholesterol, Calc 103 H (<100) mg/dL HDL Cholesterol 24 L (40-60) mg/dL Lipase 247 (23-300) U/L TSH 2.56 (0.47-4.68) uIU/mL Imaging Data Chest x-ray: Radiologist's Impression: PROCEDURE: XR CHEST 1V INDICATIONS: chest pain TECHNIQUE: One view of the chest was acquired. COMPARISON: [facility], , XR CHEST 1V, 01/12/2023, 18:39. [facility], CR, XR CHEST 1V, 12/27/2022, 3:29. FINDINGS: Surgical changes and devices: None. Lungs and pleura: Low lung volumes. Smaller fissural fluid projecting over the right mid lung. No dense airspace disease. Mediastinum: Cardiomegaly Bones and chest wall: Unremarkable IMPRESSION: Single view radiograph, no acute changes. Cardiomegaly. Small right fissural fluid is decreased. No new airspace consolidation. Dictated by: Quang Salinas M.D. on 12/01/2023 at 0:59 Approved by: Quang Salinas M.D. on 12/01/2023 at 1:00 CT scan - chest: Radiologist's Impression: Preliminary report: No pulmonary embolism identified. Stable cardiomegaly, small area atelectatic change in right upper lobe ECG Data Interpretation: Sinus tachycardia rate 119 NM interval 146 QRS [address] is no Q-waves similar to previous EKG MDM Narrative Medical decision making narrative: Patient 38-year-old male history of PE hypertension morbid obesity congestive heart failure presenting today with chest pain and shortness of breath. He is diaphoretic and short of breath on arrival but not actually hypoxic. Breathing improved with rest. Patient is noncompliant with medication here now with dad but he does not always live home. Blood work has been reviewed: No anemia leukocytosis, and carbon dioxide 19, troponin 0.049 x 2 with BNP [address] previous [address] does not show any pulmonary embolism but does show cardiomegaly Patient is having some obvious conversational dyspnea but again not hypoxic. Heart rate improves with time and diuresis.. Troponin elevated but not positive for NSTEMI. I suspect bump in troponin is secondary to congestive heart failure, not ACS. No echocardiogram is here on record, not sure he has had one. Patient has history of noncompliance with medication and follow-up. The patient is not hypoxic he is having conversational dyspnea he is poor follow-up making him a poor candidate to be discharged home. He would benefit from inpatient diuresis. Dr. Fontenot accepts patient Discharge Plan Departure Patient Disposition: Admitted as Observation Clinical Impression: CHF (congestive heart failure) Admit Date/Time: 12/01/23 05:14 Admit Provider: Hunter Arboleda
[2023-12-01] MEDS: ASPIRIN 81 MG CHEW TAB 324 MG PO (00:51)
[2023-12-01 01:03] LABS: INR 1.6 (0.9-1.3); Prothrombin Time 18.8 SECONDS (9.4-12.5)
[2023-12-01 01:06] LABS: PTT Partial Thromboplastin Tim 26 SECONDS (25.1-36.5)
[2023-12-01] MEDS: NITROGLYCERIN 0.4 MG SL TAB SL ×5 (01:07→13:37)
[2023-12-01 01:08] LABS: Alanine Aminotransferase 52 IU/L (<50); Albumin 3.4 g/dL (3.5-5.0); Alkaline Phosphatase 81 U/L (38-126); Aspartate Aminotransferase 32 IU/L (17-59); BUN Creatinine Ratio 22.3 (6-22); Bilirubin Total 1.2 mg/dL (0.2-1.3); Blood Urea Nitrogen 23 mg/dL (9-20); Carbon Dioxide 19 mmol/L (22-32); Chloride 109 mmol/L (98-107); Creatine Kinase 140 U/L (55-170); Estimated Glomerular Filt Rate > 60 mL/min (>60); Globulin 3.4 g/dL (1.7-4.1); Glucose 96 mg/dL (70-100); HEMOLYSIS < 15 (0-50); Lipase 247 U/L (23-300); Magnesium 2.1 mg/dL (1.6-2.3); Potassium 4.6 mmol/L (3.4-5.1); Sodium 138 mmol/L (137-145); Total Protein 6.8 g/dL (6.3-8.2)
[2023-12-01 01:09] LABS: Add Manual Diff / Slide Review NO; Basophils Absolute Auto 100 /uL (0-100); Basophils Percent Auto 1.5 % (0-2); Eosinophils Absolute Auto 100 /uL (0-450); Hematocrit 43.8 % (41-53); Hemoglobin 13.7 g/dL (13.5-17.5); Lymphocytes Absolute Auto 2600 /uL (1100-4500); Lymphocytes Percent Auto 43.2 % (25-40); Mean Corpuscular HGB Conc 31.2 % (30-36); Mean Corpuscular Hemoglobin 20.4 PG (26-34); Mean Corpuscular Volume 65.3 fL (80-100); Monocytes Absolute Auto 600 /uL (0-900); Neutrophils Absolute Auto 2600 /uL (1500-7000); Neutrophils Percent Auto 44.3 % (50-75); Platelet Count 290 X10^3/uL (150-400); Red Blood Cell Count 6.71 X10^6/uL (4.5-5.9); Red Cell Distribution Width 18.3 % (11.6-14.8)
[2023-12-01 01:19] LABS: Troponin I 0.049 ng/mL (0.01-0.034)
[2023-12-01 01:21] LABS: Anisocytosis 1+; Hypochromasia 1+; Microcytosis 2+; Target Cells 2+
--- NOTE | 2023-12-01 02:32 | DI.CT.S_ITS ---
PROCEDURE: CT ANGIO CHEST PE PROTOCOL INDICATIONS: chest pain sob,prior pe TECHNIQUE: After the administration of intravenous contrast, 2 mm thick sections acquired from the pulmonary apices to the posterior costophrenic angles. 3-dimensional maximum intensity projection (MIP) coronal and sagittal reformats were then acquired through the thorax. For radiation dose reduction, the following was used: automated exposure control, adjustment of mA and/or kV according to patient size. COMPARISON: [facility], CR, XR CHEST 1V, 12/27/2022, 3:29. [facility], CT, CT ANGIO CHEST PE PROTOCOL, 12/27/2022, 4:52. [facility], CR, XR CHEST 1V, 12/01/2023, 0:49. [facility], CT, CT ANGIO CHEST PE PROTOCOL, 01/12/2023, 20:29. FINDINGS: Image quality: Diagnostic. Pulmonary arteries: Pulmonary arteries are normal in size, and demonstrate no intraluminal filling defects to suggest central pulmonary embolism. Lower Neck: No enlarged lymph nodes. Thyroid: No thyroid nodules which require sonographic follow up, per consensus guidelines. Axillae: No enlarged lymph nodes. Chest Wall: There is diffuse body wall edema. Bones: Unremarkable. Lungs and Pleura: There is a triangular-shaped subpleural density in the right upper lobe, decreased in size when compared to the last exam, compatible with pleuroparenchymal scar and atelectasis. No pneumothorax or pleural effusions. No consolidation or suspicious nodules. Heart: Heart size is mildly increased. No pericardial effusion. Thoracic Vessels: No aortic aneurysm. Mediastinum and [place]: No enlarged lymph nodes. Esophagus: No wall thickening. No hiatal hernia. Upper Abdomen: Visualized upper abdomen solid organs and bowel loops appear normal. There is contrast reflux into the hepatic vein suggesting poor cardiac output. IMPRESSION: 1. No pulmonary embolus. 2. A triangular shaped density in the right upper lobe appears decreased in size compared to the last exam, compatible with pleural parenchymal scar and atelectasis. 3. Mild cardiomegaly. There is IV contrast reflux into the hepatic vein suggesting poor cardiac output. 4. Mild diffuse body wall edema. No significant discrepancy with the plant operator/shift supervisor radiology preliminary report. Dictated by: Natacha Rodrigues M.D. on 12/01/2023 at 7:19 Approved by: Natacha Rodrigues M.D. on 12/01/2023 at 9:49
[2023-12-01 03:41] LABS: NT-proBNP (BNP-Adult 18+) 15000 pg/mL (<125)
[2023-12-01 03:44] LABS: Troponin I 0.049 ng/mL (0.01-0.034)
[2023-12-01] MEDS: FUROSEMIDE 40 MG/4 ML VIAL IV ×3 (04:01→17:00)
--- NOTE | 2023-12-01 05:43 | DI.ECHO.S_ITS ---
[facility]---------+ [facility] +---------+ : : [address] [place] : : : : [id number] : : : : Phone: [phone]+ Echocardiogram Report + + :Name: PEARL DOMINGO Study Date: 12/01/2023 Height: 27 in : :[facility] ReadingLocation: Weight: 617 lb : : Gender: Male BSA: 1.7 m2 : :: 1985 Age: 38 yrs BP: 145/112 mmHg: :Reason For Study: SOB : : Performed By: Pippa Martinez : :Referring: UNSPECIFIED : + + Interpretation Summary The left ventricle is severely dilated. Left ventricular systolic function is severely reduced. The ejection fraction is estimated to be 10-15%. There is severe global hypokinesis of the left ventricle. Mid to distal left ventricle shows thickened, echogenic rico.Cannot rule out thrombus. The largest measures 2.4 cm. Consider repeating a limited study with Definity contrast to better assess. The right ventricle is grossly normal size. Right ventricular systolic function is moderate to severely reduced. The right ventricular systolic pressure is estimated to be at least 54 mmHg based on an estimated right atrial pressure of 15 mm Hg. The left atrium is severely dilated. The right atrium is moderate to severely dilated. There is mild to moderate mitral regurgitation. There is mild to moderate tricuspid regurgitation. The aortic root is normal size. There is a trace pericardial effusion that is circumferential. Procedure: A two-dimensional transthoracic echocardiogram with color flow and Doppler was performed. The study quality was technically good. There is no prior echocardiogram noted for this patient. The heart rate ranged between 115-116 bpm during the study. Left Ventricle: The left ventricle is severely dilated. Mid to distal left ventricle shows thickened, echogenic rico.Cannot rule out thrombus. The largest measures 2.4 cm. Consider repeating a limited study with Definity contrast to better assess. Left ventricular systolic function is severely reduced. The ejection fraction is estimated to be 10-15%. There is severe global hypokinesis of the left ventricle. Diastolic function could not be accurately assessed due to tachycardia. Right Ventricle: The right ventricle is grossly normal size. Right ventricular systolic function is moderate to severely reduced. Atria: The left atrium is severely dilated. The right atrium is moderate to severely dilated. The interatrial septum grossly appears intact with no obvious evidence for an atrial septal defect. Mitral Valve: The mitral valve leaflets appear borderline thickened, but open well. There is mild to moderate mitral regurgitation. Aortic Valve: The aortic valve opens well. There is trace aortic regurgitation. Tricuspid Valve: The tricuspid valve leaflets are thin and pliable. The tricuspid valve leaflets are thickened and/or calcified, but open well. There is mild to moderate tricuspid regurgitation. The right ventricular systolic pressure is estimated to be at least 54 mmHg based on an estimated right atrial pressure of 15 mm Hg. Pulmonic Valve: The pulmonic valve is normal in structure and function. There is no pulmonic valvular regurgitation. Great Vessels: The aortic root is normal size. The dimensions of the ascending aorta are normal. The aortic arch is normal in size. The IVC is dilated (diameter is greater than 2.1 cm) and it collapses less than 50% with a sniff. This suggests a high right atrial pressure of 15 mm Hg. Pericardium/ Pleura There is a trace pericardial effusion that is circumferential. There is no pleural effusion. MMode/2D Measurements & Calculations LVIDd: 6.6 cm LVOT diam: 2.4 cm LVIDs: 6.0 cm Ao root diam: 3.0 cm FS: 9.2 % asc Aorta Diam: 2.9 cm IVSd: 1.2 cm Ao Arch Diam (Prox Trans): 3.1 cm LVPWd: 1.1 cm LV lechuga. diameter/BSA (cm/m^2): 3.9 LV sys. diameter/BSA (cm/m^2): 3.5 LA A2 area: 34.2 cm2 RA long axis: 6.0 cm LA A4 area: 32.8 cm2 RA area: 24.7 cm2 LA length (vol): 7.3 cm RA vol: 86.0 ml LA vol: 129.9 ml RA : 50.7 ml/m2 LA vol index: 76.6 ml/m2 IVC diam: 2.6 cm RVD1 (basal): 4.1 cm Doppler Measurements & Calculations Ao V2 max: 98.0 cm/sec LVOT Max Crow: 54.4 cm/sec Ao V2 mean: 73.7 cm/sec LV V1 max P.2 mmHg Ao max P.8 mmHg LV V1 VTI: 6.5 cm Ao mean P.4 mmHg RAJAN(I,D): 2.0 cm2 Ao V2 VTI: 14.9 cm RAJAN(V,D): 2.5 cm2 sev ratio: 0.44 RAJAN indexed to BSA (cm^2/m^2): 1.2 MVA(VTI): 1.6 cm2 TR max crow: 309.4 cm/sec TR max P.7 mmHg PA V2 max: 69.8 cm/sec PA V2 mean: 43.2 cm/sec PA mean P.92 mmHg PA pr(Accel): 41.3 mmHg MV V2 mean: 42.4 cm/sec SV(LVOT): 29.7 ml MV mean P.2 mmHg MV V2 VTI: 19.0 cm Reading Physician:12:56 PM
[2023-12-01 06:02] LABS: Thyroid Stimulating Hormone 2.56 uIU/mL (0.47-4.68)
[2023-12-01 06:20] LABS: Hemoglobin A1C% w Est Avg Glu 5.8 % (4.0-6.0)
[2023-12-01 06:20] LABS: Cholesterol 141 mg/dL (140-199); HDL Cholesterol 24 mg/dL (40-60); LDL Cholesterol Calculated 103 mg/dL (<100); Triglycerides 71 mg/dL (35-150)
--- NOTE | 2023-12-01 06:29 | P.HP_ITS ---
History of Present Illness History of Present Illness Date Patient Seen: 12/01/23 Time Patient Seen: 06:00 Chief complaint: trouble breathing Narrative: 38 y/o with PMH of CHF came to ER after he started to cough up blood, after couple of weeks of progressive legs swelling and shortness of breath. He doesn't know why he has CHF. He thinks it could've been related to PE that he recently had. He was treated with Eliquis and on today's CTA there is no PE. He was seen in [facility] 1-2 years ago. In the ED he was consistently borderline tachycardic and hypertensive. He was given 40 mg of Lasix ivp, a dose of Zosyn and ASA. Workup showing cardiomegaly on CXR and CTA, elevated BNP and troponins, decreased CrCl, sinus tachycardia w/o ischemic changes on ECG. [facility] Medical History (Updated 12/01/23 @ 06:53 by Hunter Fontenot MD) Hypertension Seizure disorder Social History household members: family Smoking Status: Former smoker Meds Home Medications and Allergies Home Medications Medication Instructions Recorded Confirmed Type lisinopril 5 mg tablet 5 mg PO DAILY 01/12/23 12/01/23 History empagliflozin 10 mg tablet 10 mg PO DAILY 12/01/23 12/01/23 History (Jardiance) Allergies Allergy/AdvReac Type Severity Reaction Status Date / Time No Known Drug Allergies Allergy Verified 01/12/23 18:27 Review of Systems Cardiovascular Comments: chest pressure swollen legs Respiratory Comments: shortness of breath, cough, blood in the sputum Exam Vital Signs (past 8 hours): - 12/01/23 00:36 12/01/23 00:40 12/01/23 00:47 Temperature 96.7 F L Pulse Rate 118 H 119 H 114 H Respiratory Rate 20 21 26 H Blood Pressure 125/95 H Pulse Oximetry 98 98 Oxygen Delivery Method Room Air Oxygen Flow Rate 12/01/23 00:47 12/01/23 01:00 12/01/23 01:00 Temperature Pulse Rate 114 H Respiratory Rate 23 Blood Pressure 135/96 H 138/106 H Pulse Oximetry 99 Oxygen Delivery Method Oxygen Flow Rate 12/01/23 01:07 12/01/23 01:14 12/01/23 01:14 Temperature Pulse Rate 111 H 110 H 110 H Respiratory Rate 17 Blood Pressure 138/106 H 130/83 Pulse Oximetry 98 Oxygen Delivery Method Oxygen Flow Rate 12/01/23 01:14 12/01/23 01:15 12/01/23 01:15 Temperature Pulse Rate 109 H Respiratory Rate 20 Blood Pressure 130/83 136/90 Pulse Oximetry 97 Oxygen Delivery Method Room Air Oxygen Flow Rate 12/01/23 01:19 12/01/23 01:19 12/01/23 01:21 Temperature Pulse Rate 109 H 109 H Respiratory Rate 16 Blood Pressure 146/99 H 146/99 H Pulse Oximetry 96 Oxygen Delivery Method Room Air Oxygen Flow Rate 12/01/23 01:30 12/01/23 01:30 12/01/23 01:45 Temperature Pulse Rate 106 H 109 H Respiratory Rate 18 30 H Blood Pressure 126/82 Pulse Oximetry 100 99 Oxygen Delivery Method Room Air Oxygen Flow Rate 12/01/23 01:45 12/01/23 02:00 12/01/23 02:00 Temperature Pulse Rate 110 H Respiratory Rate 16 Blood Pressure 121/74 155/97 H Pulse Oximetry 100 Oxygen Delivery Method Room Air Oxygen Flow Rate 12/01/23 02:15 12/01/23 02:15 12/01/23 03:00 Temperature Pulse Rate 107 H 109 H Respiratory Rate 20 18 Blood Pressure 138/85 Pulse Oximetry 96 93 Oxygen Delivery Method Room Air Room Air Oxygen Flow Rate 12/01/23 03:00 12/01/23 03:01 12/01/23 03:01 Temperature Pulse Rate 109 H Respiratory Rate 18 Blood Pressure 162/97 H 160/108 H Pulse Oximetry Oxygen Delivery Method Oxygen Flow Rate 12/01/23 03:16 12/01/23 03:16 12/01/23 03:30 Temperature Pulse Rate 105 H 109 H Respiratory Rate 19 21 Blood Pressure 173/93 H Pulse Oximetry 98 Oxygen Delivery Method Oxygen Flow Rate 12/01/23 03:30 12/01/23 03:45 12/01/23 03:45 Temperature Pulse Rate 105 H Respiratory Rate 23 Blood Pressure 147/85 H 147/101 H Pulse Oximetry 97 Oxygen Delivery Method Room Air Oxygen Flow Rate 12/01/23 04:00 12/01/23 04:00 12/01/23 04:15 Temperature Pulse Rate 108 H 105 H Respiratory Rate 19 20 Blood Pressure 145/103 H Pulse Oximetry 99 Oxygen Delivery Method Room Air Oxygen Flow Rate 12/01/23 04:15 12/01/23 04:30 12/01/23 05:00 Temperature Pulse Rate 103 H 105 H Respiratory Rate 18 20 Blood Pressure 146/105 H Pulse Oximetry 97 Oxygen Delivery Method Room Air Oxygen Flow Rate 12/01/23 05:22 12/01/23 05:22 12/01/23 05:34 Temperature 97.8 F Pulse Rate 106 H 108 H Respiratory Rate 20 18 Blood Pressure 159/110 H 139/106 H Pulse Oximetry 97 99 Oxygen Delivery Method Room Air Oxygen Flow Rate 0 Oxygen Delivery Method Room Air Oxygen Flow Rate 0 Const Other: in no distress HENMT Other: normocephalic, poor dentition Eyes Other: eomi Resp Other: tachypneic, rales Cardio Other: RRR Extrem Other: 3+ legs edema Psych Other: appropriate mood impaired memory poor insight Objective ECG Impression: Sinus tachycardia Labs 12/01/23 00:47 12/01/23 00:47 Labs: Laboratory Results - last 24 hr 12/01/23 12/01/23 00:47 03:14 WBC 6.0 RBC 6.71 H Hgb 13.7 Hct 43.8 MCV 65.3 L MCH 20.4 L MCHC 31.2 RDW 18.3 H Plt Count 290 Neut % (Auto) 44.3 L Lymph % (Auto) 43.2 H [place] % (Auto) 10.0 Eos % (Auto) 1.0 L Baso % (Auto) 1.5 Neut # (Auto) 2600 Lymph # (Auto) 2600 [place] # (Auto) 600 Eos # (Auto) 100 Baso # (Auto) 100 RBC Morphology See below Hypochromasia 1+ H Anisocytosis 1+ H Microcytosis 2+ H Target Cells 2+ H PT 18.8 H INR 1.6 H APTT 26 Sodium 138 Potassium 4.6 Chloride 109 H Carbon Dioxide 19 L BUN 23 H Creatinine 1.03 Estimated GFR > 60 BUN/Creatinine Ratio 22.3 H Glucose 96 Hemoglobin A1c 5.8 Calcium 9.0 Magnesium 2.1 Total Bilirubin 1.2 AST 32 ALT 52 H Alkaline Phosphatase 81 Total Creatine Kinase 140 Troponin I 0.049 H 0.049 H NT-Pro-B Natriuret Pep 35232 H Total Protein 6.8 Albumin 3.4 L Globulin 3.4 Albumin/Globulin Ratio 1.0 Triglycerides 71 Cholesterol 141 LDL Cholesterol, Calc 103 H HDL Cholesterol 24 L Lipase 247 TSH 2.56 Assessment & Plan Assessment and plan (1) CHF (congestive heart failure): Status: Acute Plan: DD - nonischemic vs ischemic cardiomyopathy. His record can be obtained from [facility] - ECHO pending - placed in observation on telemetry - started Coreg, Lisinopril, Lasix and ASA - Is&Os (2) Hypertension: Status: Acute Plan: Coreg, Lisinopril (3) Noncompliance w/medication treatment due to intermit use of medication: Status: Acute Plan: DATABASE COORDINATOR for cognitive assessment suspected cognitive deficits
--- NOTE | 2023-12-01 06:59 | PC.NURSE ---
Admit Note-Patient brought to room 228 at 0540. Drowsy, oriented x3, poor historian, Dad at bedside assisting med list and other admit questions. Patient states he is still experiencing chest pressure, not pain, mild shortness of breath and apnea noted. ST 100-115, SpO2 99% on RA.
[2023-12-01 07:02] LABS: UR Morphine/Opiate cutoff 300 Negative (Negative); Ur Creatinine Normal (Normal); Ur Specific Gravity Normal (Normal); Urine Amphetamines Negative (Negative); Urine Barbiturates Negative (Negative); Urine Benzodiazepines Negative (Negative); Urine Cocaine Negative (Negative); Urine MDMA Negative (Negative); Urine Methadone Negative (Negative); Urine Methamphetamines Negative (Negative); Urine Oxycodone Negative (Negative); Urine Phencyclidine Negative (Negative); Urine Tetrahydrocannabinol Negative (Negative); Urine Tricyclic Antidepressant Negative (Negative); Urine pH Normal (Normal)
[2023-12-01 08:15] LABS: MRSA (Nasal) PCR Not Detected (Not Detect)
--- NOTE | 2023-12-01 08:31 | PM.HP.1 ---
History of Present Illness History of Present Illness Date Patient Seen: 12/01/23 Time Patient Seen: 06:00 Chief complaint: trouble breathing Narrative: 38 y/o with PMH of HFrEF 30% came to ER after he started to cough up blood, after couple of weeks of progressive legs swelling and shortness of breath. He doesn't know why he has CHF. He thinks it could've been related to PE that he recently had. He was treated with Eliquis and on today's CTA there is no PE. He was seen in [facility] 1-2 years ago. In the ED he was consistently borderline tachycardic and hypertensive. He was given 40 mg of Lasix ivp, a dose of Zosyn and ASA. Workup showing cardiomegaly on CXR and CTA, elevated BNP and troponins, decreased CrCl, sinus tachycardia w/o ischemic changes on ECG. [facility] Medical History (Updated 12/01/23 @ 06:53 by Hunter Fontenot MD) Hypertension Seizure disorder Social History household members: family Smoking Status: Former smoker Meds Home Medications and Allergies Home Medications Medication Instructions Recorded Confirmed Type lisinopril 5 mg tablet 5 mg PO DAILY 01/12/23 12/01/23 History empagliflozin 10 mg tablet 10 mg PO DAILY 12/01/23 12/01/23 History (Jardiance) Allergies Allergy/AdvReac Type Severity Reaction Status Date / Time No Known Drug Allergies Allergy Verified 01/12/23 18:27 Review of Systems Cardiovascular Comments: chest pressure swollen legs Respiratory Comments: shortness of breath, cough, blood in the sputum Exam Vital Signs (past 8 hours): - 12/01/23 00:36 12/01/23 00:40 12/01/23 00:47 Temperature 96.7 F L Pulse Rate 118 H 119 H 114 H Respiratory Rate 20 21 26 H Blood Pressure 125/95 H Pulse Oximetry 98 98 Oxygen Delivery Method Room Air Oxygen Flow Rate 12/01/23 00:47 12/01/23 01:00 12/01/23 01:00 Temperature Pulse Rate 114 H Respiratory Rate 23 Blood Pressure 135/96 H 138/106 H Pulse Oximetry 99 Oxygen Delivery Method Oxygen Flow Rate 12/01/23 01:07 12/01/23 01:14 12/01/23 01:14 Temperature Pulse Rate 111 H 110 H 110 H Respiratory Rate 17 Blood Pressure 138/106 H 130/83 Pulse Oximetry 98 Oxygen Delivery Method Oxygen Flow Rate 12/01/23 01:14 12/01/23 01:15 12/01/23 01:15 Temperature Pulse Rate 109 H Respiratory Rate 20 Blood Pressure 130/83 136/90 Pulse Oximetry 97 Oxygen Delivery Method Room Air Oxygen Flow Rate 12/01/23 01:19 12/01/23 01:19 12/01/23 01:21 Temperature Pulse Rate 109 H 109 H Respiratory Rate 16 Blood Pressure 146/99 H 146/99 H Pulse Oximetry 96 Oxygen Delivery Method Room Air Oxygen Flow Rate 12/01/23 01:30 12/01/23 01:30 12/01/23 01:45 Temperature Pulse Rate 106 H 109 H Respiratory Rate 18 30 H Blood Pressure 126/82 Pulse Oximetry 100 99 Oxygen Delivery Method Room Air Oxygen Flow Rate 12/01/23 01:45 12/01/23 02:00 12/01/23 02:00 Temperature Pulse Rate 110 H Respiratory Rate 16 Blood Pressure 121/74 155/97 H Pulse Oximetry 100 Oxygen Delivery Method Room Air Oxygen Flow Rate 12/01/23 02:15 12/01/23 02:15 12/01/23 03:00 Temperature Pulse Rate 107 H 109 H Respiratory Rate 20 18 Blood Pressure 138/85 Pulse Oximetry 96 93 Oxygen Delivery Method Room Air Room Air Oxygen Flow Rate 12/01/23 03:00 12/01/23 03:01 12/01/23 03:01 Temperature Pulse Rate 109 H Respiratory Rate 18 Blood Pressure 162/97 H 160/108 H Pulse Oximetry Oxygen Delivery Method Oxygen Flow Rate 12/01/23 03:16 12/01/23 03:16 12/01/23 03:30 Temperature Pulse Rate 105 H 109 H Respiratory Rate 19 21 Blood Pressure 173/93 H Pulse Oximetry 98 Oxygen Delivery Method Oxygen Flow Rate 12/01/23 03:30 12/01/23 03:45 12/01/23 03:45 Temperature Pulse Rate 105 H Respiratory Rate 23 Blood Pressure 147/85 H 147/101 H Pulse Oximetry 97 Oxygen Delivery Method Room Air Oxygen Flow Rate 12/01/23 04:00 12/01/23 04:00 12/01/23 04:15 Temperature Pulse Rate 108 H 105 H Respiratory Rate 19 20 Blood Pressure 145/103 H Pulse Oximetry 99 Oxygen Delivery Method Room Air Oxygen Flow Rate 12/01/23 04:15 12/01/23 04:30 12/01/23 05:00 Temperature Pulse Rate 103 H 105 H Respiratory Rate 18 20 Blood Pressure 146/105 H Pulse Oximetry 97 Oxygen Delivery Method Room Air Oxygen Flow Rate 12/01/23 05:22 12/01/23 05:22 12/01/23 05:34 Temperature 97.8 F Pulse Rate 106 H 108 H Respiratory Rate 20 18 Blood Pressure 159/110 H 139/106 H Pulse Oximetry 97 99 Oxygen Delivery Method Room Air Oxygen Flow Rate 0 12/01/23 05:45 12/01/23 08:00 Temperature 98.1 F Pulse Rate 104 H Respiratory Rate 23 Blood Pressure 145/112 H Pulse Oximetry 97 Oxygen Delivery Method Room Air Oxygen Flow Rate 0 Oxygen Delivery Method Room Air Oxygen Flow Rate 0 Const Other: in no distress HENMT Other: normocephalic, poor dentition Eyes Other: eomi Resp Other: tachypneic, rales Cardio Other: RRR Extrem Other: 3+ legs edema Psych Other: appropriate mood impaired memory poor insight Objective Labs 12/01/23 00:47 12/01/23 00:47 Labs: Laboratory Results - last 24 hr 12/01/23 12/01/23 12/01/23 00:47 03:14 05:45 WBC 6.0 RBC 6.71 H Hgb 13.7 Hct 43.8 MCV 65.3 L MCH 20.4 L MCHC 31.2 RDW 18.3 H Plt Count 290 Neut % (Auto) 44.3 L Lymph % (Auto) 43.2 H [place] % (Auto) 10.0 Eos % (Auto) 1.0 L Baso % (Auto) 1.5 Neut # (Auto) 2600 Lymph # (Auto) 2600 [place] # (Auto) 600 Eos # (Auto) 100 Baso # (Auto) 100 RBC Morphology See below Hypochromasia 1+ H Anisocytosis 1+ H Microcytosis 2+ H Target Cells 2+ H PT 18.8 H INR 1.6 H APTT 26 Sodium 138 Potassium 4.6 Chloride 109 H Carbon Dioxide 19 L BUN 23 H Creatinine 1.03 Estimated GFR > 60 BUN/Creatinine Ratio 22.3 H Glucose 96 Hemoglobin A1c 5.8 Calcium 9.0 Magnesium 2.1 Total Bilirubin 1.2 AST 32 ALT 52 H Alkaline Phosphatase 81 Total Creatine Kinase 140 Troponin I 0.049 H 0.049 H NT-Pro-B Natriuret Pep 27404 H Total Protein 6.8 Albumin 3.4 L Globulin 3.4 Albumin/Globulin Ratio 1.0 Triglycerides 71 Cholesterol 141 LDL Cholesterol, Calc 103 H HDL Cholesterol 24 L Lipase 247 TSH 2.56 Nasal Screen MRSA (PCR) Not detected U Opiates 300ng/mL cut Ur Oxycodone Screen Urine Methadone Screen Ur Barbiturates Screen U Tricyclic Antidepress Ur Phencyclidine Scrn Ur Amphetamines Screen U Methamphetamines Scrn Ur MDMA Scrn (Ecstasy) U Benzodiazepines Scrn Urine Cocaine Screen U Marijuana (THC) Screen Urine pH Urine Specific [place] Ur Creatinine 12/01/23 06:40 WBC RBC Hgb Hct MCV MCH MCHC RDW Plt Count Neut % (Auto) Lymph % (Auto) [place] % (Auto) Eos % (Auto) Baso % (Auto) Neut # (Auto) Lymph # (Auto) [place] # (Auto) Eos # (Auto) Baso # (Auto) RBC Morphology Hypochromasia Anisocytosis Microcytosis Target Cells PT INR APTT Sodium Potassium Chloride Carbon Dioxide BUN Creatinine Estimated GFR BUN/Creatinine Ratio Glucose Hemoglobin A1c Calcium Magnesium Total Bilirubin AST ALT Alkaline Phosphatase Total Creatine Kinase Troponin I NT-Pro-B Natriuret Pep Total Protein Albumin Globulin Albumin/Globulin Ratio Triglycerides Cholesterol LDL Cholesterol, Calc HDL Cholesterol Lipase TSH Nasal Screen MRSA (PCR) U Opiates 300ng/mL cut Negative Ur Oxycodone Screen Negative Urine Methadone Screen Negative Ur Barbiturates Screen Negative U Tricyclic Antidepress Negative Ur Phencyclidine Scrn Negative Ur Amphetamines Screen Negative U Methamphetamines Scrn Negative Ur MDMA Scrn (Ecstasy) Negative U Benzodiazepines Scrn Negative Urine Cocaine Screen Negative U Marijuana (THC) Screen Negative Urine pH Normal Urine Specific [place] Normal Ur Creatinine Normal Assessment & Plan Assessment and plan (1) CHF (congestive heart failure): Status: Acute Plan: Dilated cardiomyopathy presumed due to past cocaine use, with last echo being February 2023 showing EF 30%, severely dilated LV Current UDS negative Follows with Dr. Russ Lopez, fractionation plant supervisor at [facility]. Last seen in May 2023 and was supposed to have a nuclear stress done which was not completed. - repeat ECHO pending - placed on telemetry - started Lisinopril, Lasix and ASA/statin - hold beta irma until euvolemic - Is&Os - once euvolemic will obtain lexiscan stress test (2) Hypertension: Status: Acute Plan: Lisinopril (3) Noncompliance w/medication treatment due to intermit use of medication: Status: Acute Plan: MENTAL HEALTH PROGRAM MANAGER for cognitive assessment suspected cognitive deficits
[2023-12-01] MEDS: ASPIRIN EC 81 MG TABLET PO (09:36)
[2023-12-01] MEDS: lisinopriL 5 MG TABLET PO (09:36)
[2023-12-01] MEDS: SODIUM CHLORIDE 0.9% FLUSH 10 ML IV ×2 (09:38→20:52)
[2023-12-01] MEDS: acetaZOLAMIDE 250 MG TABLET 500 MG PO (11:44)
--- NOTE | 2023-12-01 11:59 | ST.IPIE ---
Visit Care Team Role Provider Type Jose Hare MD Primary Care Provider Non-Staff Specialty: Internal Medicine Address: [address] [place], [address] Email: Elder Callahan DO Family Provider Physician Specialty: Emergency Medicine Address: [address] [place] [address], [id number] Email: [email or web address] Eliane Whittaker DO Emergency Provider Physician Referring Provider Specialty: Emergency Medicine Address: [address] [place] [address], [id number] Email: [email or web address] MD Admit Provider Physician Attending Provider Specialty: Internal Medicine Address: [address] [place] [address] Fax: Email: [email or web address] Diagnoses Essential (primary) hypertension (12/01/23) Heart failure, unspecified (12/01/23) Patient's other noncompliance with medication regimen for other reason (12/01/23) Past Medical History (Last Updated 12/01/23 @ 06:48 by Hunter Fontenot MD) Hypertension (Medical) Seizure disorder (Medical) ST IP Initial Evaluation Report [employer]SULTANT Adult Cognitive Linguistic Eval Start: 12/01/23 11:15 Freq: Status: Active Protocol: Document 12/01/23 11:15 CG (Rec: 12/01/23 11:59 CG [id number]) Adult Cognitive Linguistic Evaluation Session Time Visit Start Time 10:45 Visit Stop Time 11:00 Total Visit Minutes 15 Visit Information Visit Number 1 Referral Referring Provider Hunter Fontenot MD (night hospitalist) Reason for Referral suspected cog deficits Setting Assessment Location Acute Care Visit Type Note Type Initial evaluation Patient Information Identification Type Name Patient History Per H&P: 38 y/o with PMH of CHF came to ER after he started to cough up blood, after couple of weeks of progressive legs swelling and shortness of breath. He doesn't know why he has CHF . He thinks it could've been related to PE that he recently had. He was treated with Eliquis and on today's CTA there is no PE. He was seen in [place] 1-2 years ago. In the ED he was consistently borderline tachycardic and hypertensive. He was given 40 mg of Lasix ivp, a dose of Zosyn and ASA. Workup showing cardiomegaly on CXR and CTA, elevated BNP and troponins, decreased CrCl, sinus tachycardia w/o ischemic changes on ECG. Pt was referred for ST evaluation due to suspected cognitive deficits, per night hospitalist. There is consideration for preexisting cognitive deficits/ developmental delay versus new deficits. Report indicates pt noncompliance with medication regimen for management of cardiac conditions. Per nurse , pt's dad currently manages his medications at home, though unclear when this started. Initial report also lists appropriate mood, impaired memory, poor insight for psych symptoms. ED documentation also states Patient somehow disappears at times and is noncompliant with medication. He has not been taking his medication for an unknown amount time. His dad went looking for him found him today brought him to the ED. No report of dysphagia; however, pt does endorse some kind of throat pain and has been coughing up blood. Education Level 11th grade Occupation Status Unclear Hearing Hearing Level Normal Previous Therapy Previous Speech-Language Therapy Unclear Subjective Patient Report Pt was lying reclined in bed upon ST entry to the room, dozing. He was easily roused, but appeared fatigued. Nurse reported that he had not slept all night. The pt was oriented and able to state why he was in the hospital. He was agreeable to cognitive assessment. He stated that he did not feel that he was having any difficulty with his thinking or memory. Pt presented with mildly flat affect and brief answers to [employer]SULTANT questions, though this could easily have been a result of fatigue. Speech was mildly mumbled with mildly imprecise articulation, rendering speech approximately 80-90% intelligible. Pt agreeable to complete SLUMS. About chcf through SLUMS, the mechanical design technician came to pt room to complete echocardiogram. Due to mechanical design technician having tight schedule to complete echo, cognitive assessment was brief . Pain Intensity 1 Pain Scale Used Numeric (0 - 10) Assessment Oral Motor Examination Completed No: Omitted due to time constraints Results OME ommitted due to time constraints with echo; however , pt reports no s/sx dysphagia . ER physician report does document poor dentition. Speech is noted to be mumbled and quiet, though not slurred. Informal Assessment Receptive Language Normal No Receptive Language Impairment(s) Following 2-step commands Expressive Language Normal Yes Pragmatic Language Normal No: Mildly reduced eye contact /affect Pragmatic Language Impairment(s) Flat affect,Poor eye contact Speech Normal No: Mildly imprecise articulation Speech Impairment(s) Imprecise articulation Cognition Normal No Cognitive Impairment(s) Short-term memory,Executive functioning,Problem solving Formal Assessment Standardized Test/Screener Type [facility] Mental Status ([facility]) Administration Complete Results - Pt demonstrated the following: -difficulty with subtraction tast (100 minus 23). Pt stated 97 but eventually said that wasn't right -reduced performance on generative naming task. Pt named 12 animals within 1 minute -unable to complete 4-digit number reversal -hours markers on clock correct but outside [place]; this is technically not counted for credit though pt's score would still indicate cognitive deficit if giving credit for this -pt did not set time on clock -2/4 questions on short story incorrect. For one answer, pt stated correct city but was asked for state Findings/Results Cognitive Function Moderately impaired Findings Based on brief assessment with the SLUMS in addition to chart review, the pt presents with moderate cognitive impairments at this time. However, the SLUMS is a screening tool and the pt also was reported to have not slept all night. Assessment was brief due to time constraints with echocardiogram needing to be completed. As a result, this may not be an accurate measure of the pt's baseline cognitive status. However, given history of noncompliance with medications /difficulty with IADLs in addition to report of possible intermittent elopement/ wandering in conjuction with this SLUMS score, a more thorough cognitive assessment on an outpatient basis is recommended. It is also recommended that the pt have assistance with all IADLs at this time until and unless cognitive status improves based on further assessment. Recommendations: -Pursue thorough outpatient cognitive assessment -Assistance with IADLs until and unless cognitive status improves based on further assessment Cognitive Communication Deficits Self-awareness of Cognitive- No awareness Communication Deficits Impact on Functioning Safety Risks Mod: Reacting to Emergency Managing Medication Traveling Alone in Community Plan of Care Speech-Language Treatment No Discharge Recommendations Home with Home Health
--- NOTE | 2023-12-01 12:40 | PC.NURSE ---
Day shift note 1250 - Pt reported to nurse that he was not feeling well - felt short of breath, nauseated and diaphoretic, RN assessed pt's heart sounds, breath sounds, VS, and spoke with provider. Pt denied chest pressure but felt similar to how he felt in ER. Nitro, ECG and troponin ordered. 1300 - ECG done, troponin drawn; ECG (-) for acute ST changes 1310 - pt states he feels like he has to have a bowel movement, denies chest pressure 1320 - pt has small, hard bowel movement 1325 - pt complains of chest pressure radiating 5/10 to neck, Nitro #1 given 1335 - pt says mostly abated, pain down to 2/10, assessed pt, retook BP and VS (stable), reported findings to provider 1337 - Nitro #2 given, Assessed pt, pt states pain remains 2/10 1343 - Pt denies wanting Nitro #3, BP and VS retaken; reported assessment and meds given to provider. RN stayed at bedside during nitro administrations and assessments ensure pt safety. RN counseled patient on reporting increased pain/pressure, SOB, nausea, and lightheadedness. Update 1600 - pts chest pressure has abated. Pt verbalizes he will let RN know if he feels chest pressure, SOB again.
[2023-12-01] MEDS: LORazepam 0.5 MG TABLET PO ×2 (14:40→20:56)
[2023-12-01] MEDS: MAGNESIUM HYDROXIDE 30 ML UDC PO (14:48)
[2023-12-01 14:53] LABS: Troponin I 0.042 ng/mL (0.01-0.034)
--- NOTE | 2023-12-01 15:09 | CM.DANOTE ---
Initial DCP Assessment Note Pt is a 38 yo male, resident of [place], presents with trouble breathing. Patient admitted for management of acute CHF Review of Dr Bermudez's H+P indicates Follows with Dr. Russ Lopez, sales and merchandising representative at [facility]. Last seen in May 2023 and was supposed to have a nuclear stress done which was not completed PCP:Jose Hare (?) Patient unsure who this person is Payer: [employer] [facility] Social work consult received after patient admitted to cocaine use to Dr Bermudez Met w/patient, his brother Main P [phone] and sister Debby P [phone], introduced self, role and updated white board with contact information. Patient gives this [employer] permission to proceed with siblings present. Patient lives with his father, currently unemployed. Patient does not know who is PCP or Electrician Manager is, admits he has not picked up medication in the past but cannot explain why. Patient denies needs from this [employer] and reports he has access to basic needs, food, jail, has transportation. Patient is not forthcoming with information this visit and often says I don't know. Patient makes good eye contact w/this [employer], calm, cooperative. Reported drug use not discussed this visit, will plan to return when patient is alone. No barriers identified at this time to patient's safe discharge home w/family to assist; close outpatient f/u recommended. Will continue to follow. LEAD Shabazz Discharge Planning/Care Management CM Discharge Assessment Start: 12/01/23 15:07 Freq: Status: Active Protocol: Document 12/01/23 15:07 CANDICE (Rec: 12/01/23 15:09 CANDICE [id number]) Discharge Planning Assessment Assigned Histopathologist LEDA Moreno DPOA/Assigned Designee Name brother Montoya Contact Information [phone] Advance Directives? No History Provided By Patient,Family Member,Medical Record Prior Living Arrangements House Household Members family Type of transporation used prior to Drives own vehicle admit Independent with ADL's Yes Is patient alert and oriented? Yes Comment Home Barriers to Discharge No Discharge Plan Home Transportation Arrangement Family Referrals Initiated None needed Whiteboard Updated in Patient Room with Yes name and ext. # of Histopathologist
[2023-12-01] MEDS: ENOXAPARIN 100 MG/ML SYRINGE 150 MG SUBCUT ×2 (17:00→20:50)
--- NOTE | 2023-12-01 19:18 | PC.NURSE ---
Noticed that when patient fell asleep he desatted to mid 80s and had apneic periods. Asked patient if he had ever had a sleep study or been told he had sleep apnea. Pt stated that he did not have a CPAP or sleep study but used his father's CPAP at home. Pt said he would be open to using hospital CPAP, so RN called respiratory to request a CPAP machine.
[2023-12-01] MEDS: ATORVASTATIN 20 MG TABLET PO (20:51)
[2023-12-02] VITALS (46 sets, daily range): BP systolic 129–150; BP diastolic 92–107; PULSE 95–114; RESP 11–30; TEMP 36.4–36.8; O2SAT 87–100
[2023-12-02 08:18] LABS: Hematocrit 40.7 % (41-53); Hemoglobin 12.9 g/dL (13.5-17.5); Mean Corpuscular HGB Conc 31.8 % (30-36); Mean Corpuscular Hemoglobin 20.7 PG (26-34); Mean Corpuscular Volume 65.1 fL (80-100); Platelet Count 282 X10^3/uL (150-400); Red Blood Cell Count 6.25 X10^6/uL (4.5-5.9); Red Cell Distribution Width 18.4 % (11.6-14.8); White Blood Cell Count 5.2 X10^3/uL (4.5-11.0)
[2023-12-02 08:19] LABS: Add Manual Diff / Slide Review YES; INR 1.5 (0.9-1.3); Prothrombin Time 17.8 SECONDS (9.4-12.5)
[2023-12-02 08:25] LABS: Alanine Aminotransferase 47 IU/L (<50); Albumin Globulin Ratio 0.9 (1.0-2.8); Alkaline Phosphatase 74 U/L (38-126); Aspartate Aminotransferase 31 IU/L (17-59); BUN Creatinine Ratio 21.3 (6-22); Blood Urea Nitrogen 26 mg/dL (9-20); Calcium 8.6 mg/dL (8.4-10.2); Carbon Dioxide 23 mmol/L (22-32); Chloride 105 mmol/L (98-107); Estimated Glomerular Filt Rate > 60 mL/min (>60); Globulin 3.2 g/dL (1.7-4.1); Glucose 106 mg/dL (70-100); HEMOLYSIS < 15 (0-50); Potassium 3.6 mmol/L (3.4-5.1); Sodium 136 mmol/L (137-145); Total Protein 6.2 g/dL (6.3-8.2)
[2023-12-02 08:26] LABS: Magnesium 2.1 mg/dL (1.6-2.3)
[2023-12-02] MEDS: MAGNESIUM HYDROXIDE 30 ML UDC PO (08:31)
[2023-12-02 08:33] LABS: Microcytosis 2+; Neutrophils Absolute Manual 2236 /uL (3000-5900); Total Cells Counted 100
[2023-12-02 08:34] LABS: NT-proBNP (BNP-Adult 18+) 13000 pg/mL (<125)
[2023-12-02 08:38] LABS: Anisocytosis 2+; Target Cells 1+
[2023-12-02] MEDS: lisinopriL 5 MG TABLET PO (09:39)
[2023-12-02] MEDS: acetaZOLAMIDE 250 MG TABLET 500 MG PO (09:39)
[2023-12-02] MEDS: ASPIRIN EC 81 MG TABLET PO (09:39)
[2023-12-02] MEDS: POTASSIUM CHLORIDE 20 MEQ TAB 40 MEQ PO (09:40)
[2023-12-02] MEDS: FUROSEMIDE 40 MG/4 ML VIAL IV ×2 (09:40→16:26)
[2023-12-02] MEDS: ENOXAPARIN 100 MG/ML SYRINGE 150 MG SUBCUT ×2 (09:40→19:46)
[2023-12-02] MEDS: SODIUM CHLORIDE 0.9% FLUSH 10 ML IV (09:41)
--- NOTE | 2023-12-02 11:38 | DI.ECHO.S_ITS ---
[facility] +---------+ : : [address] [place] [place] : : : : [id number] : : : : Phone: [phone]+ Echocardiogram Report + + :Name: PEARL DOMINGO Study Date: 12/02/2023 Height: 69 in : :[facility] ReadingLocation: Weight: 320 lb : : Gender: Male BSA: 2.5 m2 : :: 1985 Age: 38 yrs BP: 139/92 mmHg: :Reason For Study: LV THROMBUS : : Performed By: Pieter Trammell : :Referring: FOX RAMIREZ A : + + Interpretation Summary This is a limited study enhanced with Definity echo contrast. Severe cardiomyopathy. Multiple thrombi observed in the left ventricular apex and in hindsight they are unchanged compared to prior study December 01, 2023. Procedure: A limited echo was performed to assess for left ventricular clots. The study quality was technically adequate. Comparison is made with the echocardiogram of 12/01/23. The patient was in normal sinus rhythm during the exam. The patient was tachycardic with a heart rate of 99-110 beats per minute. Left Ventricle: Multiple thrombi are observed in the left ventricular apex- the largest thrombus measures approximatrely 2.1 cm x 1.2 cm. MMode/2D Measurements & Calculations LVIDd: 6.4 cm LVIDs: 5.5 cm FS: 13.0 % IVSd: 0.94 cm LVPWd: 1.0 cm LV lechuga. diameter/BSA (cm/m^2): 2.5 LV sys. diameter/BSA (cm/m^2): 2.2 Doppler Measurements & Calculations TR max henry: 222.3 cm/sec TR max P.8 mmHg Electronically signed by: Janine Chadwick M.D. on Reading Physician:12/02/2023 03:51 PM
--- NOTE | 2023-12-02 18:07 | PM.PN.1 ---
Subjective Subjective Interval history: Patient feeling much better today, but still very winded with any exertion. Limited echo shows 3 LV clots. He was accepted to [facility] for transfer today and waiting on a bed. Exam Vital Signs (past 8 hours): - 12/02/23 10:30 12/02/23 11:00 12/02/23 12:00 Temperature 98.2 F Pulse Rate 105 H 106 H 113 H Respiratory Rate 27 H 26 H 21 Blood Pressure 139/92 H Pulse Oximetry 98 97 97 Oxygen Flow Rate 0 12/02/23 12:17 12/02/23 12:19 12/02/23 12:19 Temperature Pulse Rate 107 H 111 H Respiratory Rate 25 H Blood Pressure 139/92 H Pulse Oximetry 98 Oxygen Flow Rate 12/02/23 12:30 12/02/23 13:00 12/02/23 13:30 Temperature Pulse Rate 105 H 107 H 105 H Respiratory Rate 25 H 23 15 Blood Pressure Pulse Oximetry 98 96 92 Oxygen Flow Rate 12/02/23 16:00 Temperature 97.7 F Pulse Rate 101 H Respiratory Rate 19 Blood Pressure 150/97 H Pulse Oximetry 97 Oxygen Flow Rate 0 Oxygen Delivery Method Room Air Oxygen Flow Rate 0 Const Other: in no distress HENMT Other: normocephalic, poor dentition Eyes Other: eomi Resp Other: tachypneic, rales Cardio Other: RRR Extrem Other: 3+ legs edema to abdomen Psych Other: appropriate mood impaired memory poor insight Objective Labs 12/02/23 07:56 12/02/23 07:56 Labs: Laboratory Results - last 24 hr 12/02/23 07:56 WBC 5.2 RBC 6.25 H Hgb 12.9 L Hct 40.7 L MCV 65.1 L MCH 20.7 L MCHC 31.8 RDW 18.4 H Plt Count 282 Neut % (Auto) Not Reportable Lymph % (Auto) Not Reportable [place] % (Auto) Not Reportable Eos % (Auto) Not Reportable Baso % (Auto) Not Reportable Lymph # (Auto) Not Reportable [place] # (Auto) Not Reportable Baso # (Auto) Not Reportable Total Counted 100 Seg Neutrophils % 43.0 Lymphocytes % (Manual) 48.0 H Monocytes % (Manual) 7.0 Eosinophils % (Manual) 1.0 L Basophils % (Manual) 1.0 Neutrophils # (Manual) 2236 L RBC Morphology See below Anisocytosis 2+ H Microcytosis 2+ H Target Cells 1+ H PT 17.8 H INR 1.5 H Sodium 136 L Potassium 3.6 Chloride 105 Carbon Dioxide 23 BUN 26 H Creatinine 1.22 Estimated GFR > 60 BUN/Creatinine Ratio 21.3 Glucose 106 H Calcium 8.6 Magnesium 2.1 Total Bilirubin 1.0 AST 31 ALT 47 Alkaline Phosphatase 74 NT-Pro-B Natriuret Pep 24692 H Total Protein 6.2 L Albumin 3.0 L Globulin 3.2 Albumin/Globulin Ratio 0.9 L PFSH Medical History (Updated 12/01/23 @ 06:53 by Hunter Fontenot MD) Hypertension Seizure disorder Social History household members: family Smoking Status: Former smoker Assessment & Plan Assessment and plan (1) CHF (congestive heart failure): Status: Acute Plan: Dilated cardiomyopathy presumed due to past cocaine and meth use last echo February 2023 showing EF 30%, severely dilated LV Current UDS negative Follows with Dr. Russ Lopez, wire wrapping machine operator at [facility]. Last seen in May 2023 and was supposed to have a nuclear stress done which was not completed. - ECHO on 12/01 with EF 10-15%, severe global hypokinesis of LV, RV mod-severely reduced function, RVSP 54, LA severely dilated, RA mod-severely dilated, mild-mod MR, mild-mod TR - repeat limited echo with definity showed multiple LV thrombi with largest being 2.1x1.2cm - continue lasix 40mg IV BID, has diuresed -5L - placed on telemetry - started Lisinopril, Lasix and ASA/statin - hold beta irma until euvolemic - Is&Os - transferring to [facility] for cardiology consult (2) Hypertension: Status: Acute Plan: Lisinopril (3) Noncompliance w/medication treatment due to intermit use of medication: Status: Acute Plan: unclear if patient has any cognitive deficits, SLUMS was 1830 on 11/30 Plan Dispo: Transfer to [facility] once bed available.
--- NOTE | 2023-12-02 18:14 | PM.DS.1 ---
History of Present Illness History of Present Illness Chief complaint: trouble breathing Narrative: 38 y/o with PMH of HFrEF 30% came to ER after he started to cough up blood, after couple of weeks of progressive legs swelling and shortness of breath. He doesn't know why he has CHF. He thinks it could've been related to PE that he recently had. He was treated with Eliquis and on today's CTA there is no PE. He was seen in [facility] 1-2 years ago. In the ED he was consistently borderline tachycardic and hypertensive. He was given 40 mg of Lasix ivp, a dose of Zosyn and ASA. Workup showing cardiomegaly on CXR and CTA, elevated BNP and troponins, decreased CrCl, sinus tachycardia w/o ischemic changes on ECG. Discharge Providers Provider Date of admission: 12/01/23 15:48 Discharge Date: 12/02/23 Primary care physician: Jose Hare Consults: 12/01/23 06:54 Consult to Speech Therapy Evaluate & Treat Comment: cognitive evaluation Physician Instructions: Evaluate and treat 12/01/23 11:58 Consult to [facility] - Manager User Interface Routine Comment: Discharge provider: Adrian Bermudez DO Summary Hospital Course Discharge Diagnosis: # dilated cardiomyopathy presumed due to past cocaine and meth use last echo February 2023 showing EF 30%, severely dilated LV BNP [address] Russ Lopez, chemical weigher at [facility]. Last seen in May 2023 and was supposed to have a nuclear stress done which was not completed. - ECHO on 12/01 with EF 10-15%, severe global hypokinesis of LV, RV mod-severely reduced function, RVSP 54, LA severely dilated, RA mod-severely dilated, mild-mod MR, mild-mod TR - patient with NYHA IV symptoms as he is dyspneic at rest - repeat limited echo with definity showed multiple LV thrombi with largest being 2.1x1.2cm, continue lovenox 1mg/kg BID - placed on telemetry - given lasix 40mg IV BID and diamox 500mg daily, diuresed net negative -8L - started Lisinopril and ASA/statin - hold beta irma until euvolemic - Is&Os - transferring to [facility] for cardiology consult # JONNIE -uses his father's CPAP at night # previous polysubstance abuse -per family patient has use cocaine and meth, with a drug OD a few months ago -current UDS negative Hospital Course: Admitted for worsening dyspnea with exertion. Had cardiomegaly and pulm edema on CXR with BNP 07774. Echo showed EF 10-15% with severely dilated LV and global hypokinesis. Started on IV lasix and diamox and diuresed 11L total (net neg -8L in 2 days). Echo also showed LV thrombi so lovenox 1mg/kg BID given. Started on lisinopril, aspirin and statin and beta irma held until euvolemic. Due to severe dilated CM in 38yo patient, he was transferred for cardiology consult to [facility]. Exam Vital Signs (past 8 hours): - 12/02/23 10:30 12/02/23 11:00 12/02/23 12:00 Temperature 98.2 F Pulse Rate 105 H 106 H 113 H Respiratory Rate 27 H 26 H 21 Blood Pressure 139/92 H Pulse Oximetry 98 97 97 Oxygen Flow Rate 0 12/02/23 12:17 12/02/23 12:19 12/02/23 12:19 Temperature Pulse Rate 107 H 111 H Respiratory Rate 25 H Blood Pressure 139/92 H Pulse Oximetry 98 Oxygen Flow Rate 12/02/23 12:30 12/02/23 13:00 12/02/23 13:30 Temperature Pulse Rate 105 H 107 H 105 H Respiratory Rate 25 H 23 15 Blood Pressure Pulse Oximetry 98 96 92 Oxygen Flow Rate 12/02/23 16:00 Temperature 97.7 F Pulse Rate 101 H Respiratory Rate 19 Blood Pressure 150/97 H Pulse Oximetry 97 Oxygen Flow Rate 0 Oxygen Delivery Method Room Air Oxygen Flow Rate 0 Const Other: in no distress HENMT Other: normocephalic, poor dentition Eyes Other: eomi Resp Other: tachypneic, rales Cardio Other: RRR Extrem Other: 3+ legs edema to abdomen Psych Other: appropriate mood impaired memory poor insight Objective Labs 12/02/23 07:56 12/02/23 07:56 Labs: Laboratory Results - last 24 hr 12/02/23 07:56 WBC 5.2 RBC 6.25 H Hgb 12.9 L Hct 40.7 L MCV 65.1 L MCH 20.7 L MCHC 31.8 RDW 18.4 H Plt Count 282 Neut % (Auto) Not Reportable Lymph % (Auto) Not Reportable [place] % (Auto) Not Reportable Eos % (Auto) Not Reportable Baso % (Auto) Not Reportable Lymph # (Auto) Not Reportable [place] # (Auto) Not Reportable Baso # (Auto) Not Reportable Total Counted 100 Seg Neutrophils % 43.0 Lymphocytes % (Manual) 48.0 H Monocytes % (Manual) 7.0 Eosinophils % (Manual) 1.0 L Basophils % (Manual) 1.0 Neutrophils # (Manual) 2236 L RBC Morphology See below Anisocytosis 2+ H Microcytosis 2+ H Target Cells 1+ H PT 17.8 H INR 1.5 H Sodium 136 L Potassium 3.6 Chloride 105 Carbon Dioxide 23 BUN 26 H Creatinine 1.22 Estimated GFR > 60 BUN/Creatinine Ratio 21.3 Glucose 106 H Calcium 8.6 Magnesium 2.1 Total Bilirubin 1.0 AST 31 ALT 47 Alkaline Phosphatase 74 NT-Pro-B Natriuret Pep 31491 H Total Protein 6.2 L Albumin 3.0 L Globulin 3.2 Albumin/Globulin Ratio 0.9 L PFSH Medical History (Updated 12/01/23 @ 06:53 by Hunter Fontenot MD) Hypertension Seizure disorder Social History household members: family Smoking Status: Former smoker Discharge Plan Discharge Plan Patient Disposition: Xfer Acute [facility] Discharge Data Primary Care Provider: Jose Hare
--- NOTE | 2023-12-02 19:30 | PC.NURSE ---
Pt VSS, no episodes of CP/SOB at rest during day. Gave report to Andrea at [facility] and to ALS transport conductor.
[2023-12-02] MEDS: ATORVASTATIN 20 MG TABLET PO (19:46)
[2023-12-02] MEDS: LORazepam 0.5 MG TABLET PO (19:46)
--- NOTE | 2023-12-02 20:09 | PC.NURSE ---
Patient is alert and oriented, discharged to [facility] transported by ALS per [facility], family at bedside during black pickler, pertinent paperwork endorsed to RN transporting patient, nursing report given to RN at [facility] by dayshift RN.
== END 2023-12-02 20:10 | disposition short-term general hospital (02) | DRG 205 ==
LOC: ED 05:12 → ICU 05:16
PROVIDERS: Student in an Organized Health Care Education/Training Program; Admitting Provider Internal Medicine; Emergency Provider Emergency Medicine; Family Provider Emergency Medicine; PCP Student in an Organized Health Care Education/Training Program; Referring Provider Emergency Medicine; Visit Provider Internal Medicine
DX: I42.0 Dilated cardiomyopathy (principal); I11.0 Hypertensive heart disease with heart failure; I50.9 Heart failure, unspecified; F14.11 Cocaine abuse, in remission; F15.11 Other stimulant abuse, in remission; G47.33 Obstructive sleep apnea (adult) (pediatric); Z91.148 Patient's other noncompliance with medication regimen for other reason; Z86.711 Personal history of pulmonary embolism; Z87.891 Personal history of nicotine dependence
CPT/HCPCS: 36415; 71045; 71275; 80053; 80061; 80305; 82550; 83036; 83690; 83735; 83880; 84443; 84484; 85007; 85025; 85610; 85730; 87797; 92523; 93005; 93010; 93306; 93307; 96374; 99284; G0378; J1650; J1940; Q9957; Q9967